=== PATIENT | female | born 1995 | race African-American/Black ===

== ENCOUNTER 2023-03-16 12:53 | Outpatient (CLI) | payer OTHER, SELFPAY ==
[2023-03-16 14:18] LABS: Basophils Absolute Auto 0.1 K/mm3 (0.0-0.1); Basophils Percent Auto 0.9 % (0.2-1.2); Eosinophils Absolute Auto 0.2 K/mm3 (0-0.3); Eosinophils Percent Auto 2.6 % (0-4.4); Hematocrit 35.7 % (37.0-47.0); Hemoglobin 11.4 g/dL (12.0-15.0); Immature Granulocyte Absolute 0.01 K/mm3 (0.00-0.031); Immature Granulocyte Percent A 0.2 % (0-0.5); Lymphocytes Absolute Auto 4.19 K/mm3 (0.9-3.2); Lymphocytes Percent Auto 63.3 % (18.3-44.2); Mean Corpuscular HGB Conc 31.9 g/dl (32-36); Mean Corpuscular Hemoglobin 28.8 pg (26-34); Mean Corpuscular Volume 90.2 fl (80-100); Mean Platelet Volume 10.2 fl (7.4-10.4); Monocytes Absolute Auto 0.3 K/mm3 (0.1-0.6); Monocytes Percent Auto 4.1 % (2.6-8.5); Neutrophils Absolute Auto 1.9 K/mm3 (1.3-6.7); Neutrophils Percent Auto 28.9 % (45.5-73.1); Platelet Count Result 433 k/mm3 (150-375); Red Blood Count 3.96 M/mm3 (4.2-5.4); Red Cell Distribution Width 15.5 % (11.5-14.5); White Blood Count 6.6 K/mm3 (4.5-10.0)
[2023-03-16 14:28] LABS: Alanine Aminotransferase 20 U/L (6-35); Albumin Level 3.6 g/dL (3.5-5.1); Alkaline Phosphatase 61 U/L (38-126); Anion Gap 5 mmol/L (8-16); Aspartate Amino Transferase 21 U/L (14-36); Bilirubin,Total 0.4 mg/dL (0.2-1.3); Blood Urea Nitrogen 12 mg/dL (7-17); Calcium 8.9 mg/dL (8.4-10.2); Carbon Dioxide 25 mmol/L (22-30); Chloride 105 mmol/L (98-107); Estimated Glomerular Filt Rate > 60; Glucose 81 mg/dL (65-110); Potassium 3.5 mmol/L (3.4-5.0); Sodium 135 mmol/L (137-145)
== END 2023-03-16 12:54 | disposition home or self-care (01) ==
PROVIDERS: PCP Family Medicine Adolescent Medicine; Visit Provider Nurse Practitioner Family
DX: G82.20 Paraplegia, unspecified (principal); L89.154 Pressure ulcer of sacral region, stage 4; N39.0 Urinary tract infection, site not specified; Z13.220 Encounter for screening for lipoid disorders
CPT/HCPCS: 36415; 80053; 85025; 99212; G0463

== ENCOUNTER 2023-04-13 12:28 | Outpatient (NON) | payer OTHER, SELFPAY ==
[2023-04-13 13:24] LABS: Appearance Urine Turbid (Clear); Bacteria Urine None Seen /hpf; Bilirubin Urine Negative (Negative); Blood Urine 2+ (Negative); Color Urine Yellow (Yellow); Glucose Urine UA Negative (Negative); Ketones Urine Negative (Negative); Leukocyte Esterase Ur 2+ LEU/UL (Negative); Nitrate Urine Negative (Negative); Non Pathogenic Casts 0-2; Protein Urine 2+ mg/dL (Negative); Specific Grav Ur 1.025 (1.001-1.035); Squamous Epithelial Cell Urine None seen /hpf (Few); WBC Urine >100 /hpf; pH Urine 6.5 (5.0-9.0)
[2023-04-13 20:12] LABS: Add Urine Microscopic? YES
== END 2023-04-13 12:29 | disposition home or self-care (01) ==
LOC: HOME HLTH 12:29
PROVIDERS: PCP Family Medicine Adolescent Medicine; Visit Provider Nurse Practitioner Family
DX: N39.0 Urinary tract infection, site not specified (principal)
CPT/HCPCS: 81001; 87086; 87088

== ENCOUNTER 2023-06-06 12:30 | Outpatient (RCR) | payer OTHER, SELFPAY ==
[2023-03-09 13:18] VITALS: BMI 18.9
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
--- NOTE | 2023-06-08 14:29 | PCWOUND ---
WOCN NOTE Patient has missed last three scheduled appointments. Appointment on 06/01/23 was missed due to transportation issue, then was rescheduled for 06/02/23 and again did not have a ride. Appointment was again rescheduled for 06/06/23 and patient was a no show. Spoke with Gardenia SESAY Manager of [facility] to see if they had any updates on patient's care, states that patient is going through a financial hardship and significant other who is also her primary primary care physician had to go back to work. Unfortunately patient is a total care patient and can't be left alone and they have no one else to stay with patient, so they've been trying through the state to get significant other set up to be a paid caregiver, but they are still waiting for approval. Spoke with Georgina SESAY, who went and saw the patient today. States the wound and periwound tissue have improved and that she reapplied the wound vac today. Due to patient's transportation issues, no follow up appointment will be made in the wound center right now, home health will be primary care team. Appointments will be set up on as an needed term based on Home Health RN observations.
== END 2023-06-07 23:59 | disposition home or self-care (01) ==
LOC: ANHWOC 12:30
PROVIDERS: PCP Family Medicine Adolescent Medicine; Visit Provider Surgery
DX: L89.154 Pressure ulcer of sacral region, stage 4 (principal); G82.20 Paraplegia, unspecified; Z13.220 Encounter for screening for lipoid disorders
CPT/HCPCS: 97605; 99212; 99213; A9270; G0463

== ENCOUNTER 2023-08-17 14:56 | Outpatient (NON) | payer OTHER, SELFPAY | END 2023-08-17 14:57 | disposition home or self-care (01) | PROVIDERS: PCP Family Medicine Adolescent Medicine; Visit Provider Family Medicine Adolescent Medicine | DX: Z11.9 Encounter for screening for infectious and parasitic diseases, unspecified (principal) | CPT/HCPCS: 87070; 87205 ==

== ENCOUNTER 2023-09-06 21:56 | Inpatient (IN) | payer OTHER, SELFPAY ==
[2023-09-06] VITALS (9 sets, daily range): BP systolic 103–129; BP diastolic 71–85; PULSE 80–95; RESP 11–23; TEMP 34.9–36.1; O2SAT 94–100
--- NOTE | ~2023-09-06 | CT_ITS ---
CT of the Abdomen and Pelvis: Indication: Abdominal pain Technique: 2.5 mm axial scans were obtained through the abdomen and pelvis following intravenous adm inistration of 90 cc of Omnipaque 350. Dose reduction technique was used on this scan by utilizing au tomated exposure control and iterative reconstruction technique. The dose-length product (DLP) was 18 3.10 mGy-cm. Findings: Scans through the lung bases are unremarkable. The liver, pancreas, gallbladder, adrenals and kidneys are within normal limits. Probable prior splen ectomy with splenosis. No evidence of aortic aneurysm. No lymphadenopathy. No bowel obstruction or bowel wall thickening. No definite evidence for acute appendicitis. Evaluatio n of bowel is suboptimal due to paucity of intra-abdominal fat. Images through the pelvis were performed. Mac catheter and air bubbles present in the urinary bladd er, possible mild urinary bladder wall thickening. No adnexal mass evident. No ascites. Impression: Questionable cystitis. Correlate clinically. No acute findings evident. Reviewed, dictated and finalized at [facility]. Impression: Questionable cystitis. Correlate clinically. No acute findings evident.
[2023-09-06 22:58] LABS: Basophils Absolute Auto 0.1 K/mm3 (0.0-0.1); Basophils Percent Auto 0.7 % (0.2-1.2); Eosinophils Absolute Auto 0.1 K/mm3 (0-0.3); Hematocrit 37.4 % (37.0-47.0); Immature Granulocyte Absolute 0.02 K/mm3 (0.00-0.031); Immature Granulocyte Percent A 0.2 % (0-0.5); Lymphocytes Absolute Auto 3.99 K/mm3 (0.9-3.2); Lymphocytes Percent Auto 31.6 % (18.3-44.2); Mean Corpuscular HGB Conc 32.1 g/dl (32-36); Mean Corpuscular Hemoglobin 28.6 pg (26-34); Mean Platelet Volume 9.8 fl (7.4-10.4); Monocytes Absolute Auto 0.8 K/mm3 (0.1-0.6); Monocytes Percent Auto 6.3 % (2.6-8.5); Neutrophils Absolute Auto 7.6 K/mm3 (1.3-6.7); Neutrophils Percent Auto 60.2 % (45.5-73.1); Platelet Count Result 466 k/mm3 (150-375); Red Cell Distribution Width 16.1 % (11.5-14.5); White Blood Count 12.6 K/mm3 (4.5-10.0)
[2023-09-06 23:10] LABS: Alanine Aminotransferase 20 U/L (6-35); Albumin Level 4.5 g/dL (3.5-5.1); Alkaline Phosphatase 90 U/L (38-126); Anion Gap 17 mmol/L (4-12); Aspartate Amino Transferase 30 U/L (14-36); Bilirubin,Total 1.2 mg/dL (0.2-1.3); Blood Urea Nitrogen 10 mg/dL (7-17); Calcium 9.6 mg/dL (8.4-10.2); Carbon Dioxide 10 mmol/L (22-30); Chloride 107 mmol/L (98-107); Estimated Glomerular Filt Rate > 60; Glucose 56 mg/dL (65-110); Lipase 42 U/L (23-300); Potassium 4.2 mmol/L (3.4-5.0); Sodium 134 mmol/L (137-145)
[2023-09-06] MEDS: DEXTROSE 50% 25 GM/50 ML SYRINGE IV PUSH (23:17)
[2023-09-06 23:33] LABS: Appearance Urine Cloudy (Clear); Bacteria Urine 1+ /hpf; Bilirubin Urine Negative (Negative); Blood Urine 2+ (Negative); Color Urine Yellow (Yellow); Glucose Urine UA Negative (Negative); Ketones Urine 4+ mg/dL (Negative); Leukocyte Esterase Ur 2+ LEU/UL (Negative); Need Manual Microscopic Reviewed; Nitrate Urine Negative (Negative); Protein Urine Trace mg/dL (Negative); Specific Grav Ur 1.022 (1.001-1.035); Squamous Epithelial Cell Urine Many /hpf (Few); WBC Urine 21-50 /hpf (0-3); pH Urine 5.5 (5.0-9.0)
[2023-09-06] MEDS: SODIUM CHLORIDE 0.9% IV 1,000 ML 999 ML IV CONT (23:35)
--- NOTE | 2023-09-06 23:39 | PC.NURSE ---
pt verbalized having a previous wound infection that grew strep. She states i already finished the antibiotic for that though. I knew something was wrong with me. Yon schulte placed on pt at this time.
[2023-09-06 23:40] LABS: Add Urine Microscopic? YES
[2023-09-07] VITALS (65 sets, daily range): BP systolic 102–164; BP diastolic 62–114; PULSE 60–105; RESP 11–30; TEMP 34.9–37.7; O2SAT 98–100; BMI 19.3
[2023-09-07] MEDS: ceFAZolin 1 GM/NS 50 ML 1 GM/50 ML BAG IVPB (00:01)
[2023-09-07 00:19] LABS: Glucose Point of Care 154 mg/dl (65-105)
[2023-09-07] MEDS: SODIUM CHLORIDE 0.9% IV 1,000 ML 150 ML IV CONT (00:22)
[2023-09-07] MEDS: SODIUM CHLORIDE 0.9% IV 1,000 ML 999 ML IV CONT (00:22)
[2023-09-07 00:54] LABS: Erythrocyte Sedimentation Rate 18 mm/hr (0-20)
[2023-09-07] MEDS: VANCOMYCIN 1,000 MG/NS 250 ML 1,000 MG/250 ML BAG 250 MG IVPB (00:55)
[2023-09-07 01:11] LABS: CRP 2.3 mg/dL (<1.0)
--- NOTE | 2023-09-07 03:04 | ED.ABDPAIN ---
HPI - Abdominal Pain General Chief Complaint: Abdominal Pain Stated Complaint: abd pain Time Seen by Provider: 09/06/23 23:50 History of Present Illness HPI narrative: Patient is a 28-year-old female who presents to the emergency department this evening complaining of left lower quadrant abdominal pain. Patient also admits that she has been having some nausea and diarrhea for the past 3-4 days after eating at a restaurant in [place]. Patient is wheelchair-bound secondary to history of spinal cord injury and lives at home with her fiance with home healthcare. Patient has a wound VAC in place for a sacral wound that she has been dealing with for the past 3 years. Patient recently had positive wound culture for strep and was placed on an antibiotic for this which she 9 days ago. Patient denies any fevers, any urinary symptoms and is currently denying any additional symptoms at this time. Related Data Allergies Allergy/AdvReac Type Severity Reaction Status Date / Time No Known Allergies Allergy Verified 07/07/23 11:11 Review of Systems Review of Systems: All systems are reviewed and are negative unless stated otherwise in the HPI. [facility] Social History Social History Smoking status: Former smoker Tobacco type: cigarettes and e-cigarettes/vaping Alcohol intake: never Substance use: current Substance use type: marijuana Additional living arrangements comments: lives with fianc?e Exam Narrative: General: Alert, awake, afebrile, in no acute distress. HEENT: PERRL, no rhinorrhea, no post nasal drip, oropharynx clear. Neck: Trachea midline, no JVD, no lymphadenopathy. Cardiovascular: Regular rate and rhythm, no murmurs, rubs or gallops, no peripheral edema. Respiratory: Clear to auscultation bilaterally, no tachypnea, no wheezing, no rhonchi, no rubs, no respiratory distress. Abdomen: Soft, tenderness palpation in the left lower quadrant, nondistended, no rebound, no guarding, no peritoneal signs, wound VAC in place over sacral region. Musculoskeletal: Flaccid bilateral lower extremity paralysis secondary spinal cord injury. Skin: No rashes or petechia, no signs of infection. Psychiatric: Alert and oriented, normal behavior and judgment for situation. Neurological: Alert and oriented to person, place, and time. Follows all commands. No focal deficits, speech is clear and fluent. Course Vital Signs Vital signs: Vital Signs Temperature 96 F L 09/06/23 22:06 Pulse Rate 86 09/06/23 22:06 Respiratory Rate 12 09/06/23 22:06 Blood Pressure 129/85 09/06/23 22:06 Pulse Oximetry 100 09/06/23 22:06 Oxygen Delivery Room Air 09/06/23 22:06 Temperature 95.3 F L 09/07/23 00:21 Pulse Rate 89 09/07/23 00:21 Respiratory Rate 11 L 09/07/23 00:21 Blood Pressure 124/76 09/07/23 00:21 Pulse Oximetry 100 09/07/23 00:00 Oxygen Delivery Room Air 09/06/23 22:06 MDM - Abdominal Pain MDM Narrative Medical decision making narrative: The patient was evaluated by myself in the emergency department. History is obtained from patient who is an independent historian and physical exam was performed. External medical records were reviewed at this time. IV was established and pertinent tests were ordered. Patient temperature was noted to be 93? F and this time patient was placed in a bear Hugger with improvement of her temperature 95.3?. Patient was administered 1 L IV fluid bolus with normal saline. Laboratory results obtained revealing a leukocytosis of 12.6, glucose 56, otherwise unremarkable. At this time, patient was administered an amp of dextrose with improvement of her glucose to 154. Inflammatory markers obtained revealed C reactive protein of 2.3, normal ESR. Urinalysis revealed urinary tract infection. At this time, patient was started on vancomycin and cefazolin to cover her for sepsis, likely source is are sacral wound and u
--- NOTE | 2023-09-07 03:34 | PC.NURSE ---
Pt has active wound vac to sacrum and left hip with home health wound vac in place at time of arrival to ed. Unable to assess physical wound d/t wound vac being in place.
--- NOTE | 2023-09-07 03:35 | PC.NURSE ---
Pt depend changed, stool (small smear) cleaned up. Pt noted that her wound vac dressing was due to be changed later today so she was going to text her home health girl to cancel that appointment. This RN attempted to cleanse dressing the best I could from small stool smear.
--- NOTE | 2023-09-07 05:11 | PC.NURSE ---
Yon schulte removed at this time.
--- NOTE | 2023-09-07 07:13 | PC.NURSE ---
SETH Cruz RN
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
[2023-09-07 10:03] LABS: Glucose Point of Care 63 mg/dl (65-105)
[2023-09-07 10:19] LABS: Glucose Point of Care 66 mg/dl (65-105)
--- NOTE | 2023-09-07 10:35 | ADMGEN ---
This patient, Lalit Christopher, was admitted to IMU Room 210-01. Patient/family oriented to hospital policies and general routines including ID bracelet, bed and alarms, visiting hours, pain management, procedures, bathroom and other care routines, personal items, smoking policy, room service/diet, and visiting hours. Information on how to activate the Rapid Response Team has been discussed. Patient/Family are encouraged to report perceived risks to care and to ask questions if they do not understand what they are told or what they should do.
[2023-09-07 12:11] LABS: Glucose Point of Care 87 mg/dl (65-105)
[2023-09-07] MEDS: VANCOMYCIN 750 MG/NS 250 ML 750 MG/250 ML BAG 250 MG IVPB (12:39)
[2023-09-07] MEDS: cefTRIAXone 2 GM/NS 100 ML 2 GM/100 ML BAG IVPB (14:54)
[2023-09-07] MEDS: HYDROcodone/acetaminophen (*CRX) 5-325 MG TABLET 1 TAB PO ×2 (14:54→22:52)
[2023-09-07] MEDS: TOLTERODINE TARTRATE 2 MG TABLET PO ×2 (14:56→20:41)
[2023-09-07] MEDS: metroNIDAZOLE 500 MG TABLET XX (16:26)
[2023-09-07] MEDS: DEXTROSE 5%/0.9% SOD CHL 1,000 ML 100 ML IV CONT (16:26)
--- NOTE | 2023-09-07 16:49 | PC.NURSE ---
Spoke with Dr. Alarcon to receive clarification on Flagyl order. Wound RN recommends 250mg Flagyl crushed and sprinkled into wound bed daily with dressing changes. Flagyl 500mg PO q8hr was ordered by . New order to change Flagyl back to original order placed by wound RN.
[2023-09-07 16:53] LABS: Glucose Point of Care 95 mg/dl (65-105)
[2023-09-07 20:19] LABS: Glucose Point of Care 105 mg/dl (65-105)
[2023-09-07 23:32] LABS: Glucose Point of Care 115 mg/dl (65-105)
[2023-09-08] MEDS: VANCOMYCIN 750 MG/NS 250 ML 750 MG/250 ML BAG 250 MG IVPB (02:07)
[2023-09-08] MEDS: DEXTROSE 5%/0.9% SOD CHL 1,000 ML 100 ML IV CONT (02:08)
[2023-09-08 04:48] LABS: Estimated Glomerular Filt Rate > 60
[2023-09-08 07:34] VITALS: BP 123/85; PULSE 81; RESP 14; TEMP 36.6; O2SAT 100
[2023-09-08 08:49] VITALS: O2SAT 98
[2023-09-08 09:29] LABS: Glucose Point of Care 130 mg/dl (65-105)
[2023-09-08] MEDS: HYDROcodone/acetaminophen (*CRX) 5-325 MG TABLET 1 TAB PO ×2 (09:51→21:36)
[2023-09-08] MEDS: TOLTERODINE TARTRATE 2 MG TABLET PO ×2 (09:54→21:43)
--- NOTE | 2023-09-08 10:47 | PM.IMPN ---
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 Meeting criteria of sepsis Likely secondary to UTI, acute infective gastroenteritis, and also possible decubitus ulcer Patient received vancomycin and cefazolin in the ED. will start ceftriaxone 2 g IV daily, Flagyl 500 mg q.8 hours p.o. follow urine culture blood culture, stool culture 09/07: patient is afebrile, blood pressure stable, leukocytosis improving, 10.2 today urine culture grows E coli pending susceptibility UTI UA shows pyuria hematuria Start ceftriaxone IV Follow-up urine culture Repeat the UA, if hematuria persists, consult urologist Stage IV decubital ulcer Patient stage IV decubital ulcer, Hemovac, foul-smelling consult wound care Wound culture per wound care Patient is on systemic antibiotics now Hypoglycemia Likely secondary to poor intake Hypoglycemia protocol is initiated Start D5 normal saline patient may stay more than 2 midnights in hospital Subjective Date/time seen: 09/08/23 10:48 Interval history: patient is afebrile, blood pressure stable, no O2 desaturation room air, blood culture has no growth so far, urine culture grows E coli, pending susceptibility. patient denies abdomen pain, nausea vomiting Exam Narrative: GENERAL: Pleasant, in no acute distress. Well-nourished. - EYES: EOMI. Anicteric. - HENT: Moist mucous membranes. - LUNGS: Clear to auscultation bilaterally, no wheezing, rhonchi, or rales. - CARDIOVASCULAR: Regular rate and rhythm. No murmur. No JVD. - ABDOMEN: Soft, non-tender and non-distended. No palpable masses. - EXTREMITIES: No edema. Peripheral pulses 2+. Non-tender. - NEUROLOGIC: No focal neurological deficits. paralyses lower extremities, contracture of both hands - PSYCHIATRIC: Awake, Alert and oriented x 3. Appropriate mood and affect. - SKIN: stage IV decubital ulcer - LYMPH: No cervical lymphadenopathy. Objective Data Vital Signs Vital Signs: Vital Signs - 24 hr 09/07/23 11:44 09/07/23 16:00 09/07/23 19:59 Temperature 97.8 F 97.6 F 98.5 F Pulse Rate 76 63 83 Respiratory Rate 16 14 16 Blood Pressure 134/87 130/81 126/73 Pulse Oximetry 100 100 98 Oxygen Delivery Fraction of Inspired Oxygen 09/07/23 20:00 09/07/23 23:28 09/08/23 07:34 Temperature 98 F Pulse Rate 83 78 81 Respiratory Rate 16 14 Blood Pressure 123/85 Pulse Oximetry 98 100 Oxygen Delivery Room Air Fraction of Inspired Oxygen 09/08/23 08:49 Temperature Pulse Rate Respiratory Rate Blood Pressure Pulse Oximetry 98 Oxygen Delivery Room Air Fraction of Inspired Oxygen 21 Intake/Output Intake/Output: Intake & Output 09/05/23 09/06/23 09/07/23 09/08/23 23:59 23:59 23:59 23:59 Intake Total 4440 1970 Output Total 1200 1200 Balance 3240 770 Meds/Results Medications: Active Medications Generic Name Dose Route Start Last Admin Trade Name Freq PRN Reason Stop Dose Admin Hydrocodone Bitart/Acetaminophen 1 tab 09/07/23 14:16 09/08/23 09:51 Hydrocodone/Acetaminophen (*Crx) 5-325 Mg Tablet PO 1 tab BID PRN Administration pain Dextrose 12.5 gm 09/07/23 10:21 Dextrose 50% 25 Gm/50 Ml Syringe IV PUSH PRN PRN Hypoglycemia
[2023-09-08 11:01] LABS: Basophils Absolute Auto 0.1 K/mm3 (0.0-0.1); Basophils Percent Auto 0.5 % (0.2-1.2); Eosinophils Absolute Auto 0.2 K/mm3 (0-0.3); Eosinophils Percent Auto 2.3 % (0-4.4); Hematocrit 32.9 % (37.0-47.0); Hemoglobin 10.4 g/dL (12.0-15.0); Immature Granulocyte Absolute 0.02 K/mm3 (0.00-0.031); Immature Granulocyte Percent A 0.2 % (0-0.5); Lymphocytes Absolute Auto 5.08 K/mm3 (0.9-3.2); Lymphocytes Percent Auto 49.7 % (18.3-44.2); Mean Corpuscular HGB Conc 31.6 g/dl (32-36); Mean Corpuscular Hemoglobin 28.7 pg (26-34); Mean Corpuscular Volume 90.6 fl (80-100); Mean Platelet Volume 10.2 fl (7.4-10.4); Monocytes Absolute Auto 0.9 K/mm3 (0.1-0.6); Monocytes Percent Auto 8.4 % (2.6-8.5); Neutrophils Percent Auto 38.9 % (45.5-73.1); Platelet Count Result 415 k/mm3 (150-375); Red Blood Count 3.63 M/mm3 (4.2-5.4); Red Cell Distribution Width 16.5 % (11.5-14.5); White Blood Count 10.2 K/mm3 (4.5-10.0)
[2023-09-08] MEDS: metroNIDAZOLE 250 MG TABLET XX (11:15)
[2023-09-08 11:34] LABS: Anion Gap 6 mmol/L (4-12); Blood Urea Nitrogen 5 mg/dL (7-17); Calcium 8.7 mg/dL (8.4-10.2); Carbon Dioxide 19 mmol/L (22-30); Chloride 113 mmol/L (98-107); Estimated Glomerular Filt Rate > 60; Glucose 107 mg/dL (65-110); Potassium 3.5 mmol/L (3.4-5.0); Sodium 138 mmol/L (137-145)
[2023-09-08 12:35] LABS: Vancomycin Trough 6.2 ug/mL (10.0-20.0)
[2023-09-08 13:00] LABS: Glucose Point of Care 110 mg/dl (65-105)
[2023-09-08] MEDS: cefTRIAXone 2 GM/NS 100 ML 2 GM/100 ML BAG IVPB (15:38)
[2023-09-08 16:00] VITALS: BP 111/80; PULSE 79; RESP 16; TEMP 36.6; O2SAT 100
[2023-09-08] MEDS: VANCOMYCIN 1,000 MG/NS 250 ML 1,000 MG/250 ML BAG 250 MG IVPB ×2 (16:14→21:37)
[2023-09-08 17:17] LABS: Glucose Point of Care 116 mg/dl (65-105)
[2023-09-08 20:00] VITALS: PULSE 79; RESP 16; O2SAT 100
[2023-09-08 20:37] LABS: Glucose Point of Care 105 mg/dl (65-105)
[2023-09-08 20:45] VITALS: BP 130/87; PULSE 83; RESP 16; TEMP 36.4; O2SAT 97
--- NOTE | 2023-09-08 21:05 | PC.NURSE ---
This patient, Lalit Christopher, was transferred to [[id number] ] on 09/08/23 at 2105. Personal belongings sent with patient. Report given to [Vidhya bernard ]. Appropriate documentation sent with patient.
--- NOTE | 2023-09-08 21:22 | PC.NURSE ---
Pt transferred from IMU to 2nd Medical Room 785 @3057. Report received from LÁZARO Landaverde.
[2023-09-09] MEDS: VANCOMYCIN 1,000 MG/NS 250 ML 1,000 MG/250 ML BAG 250 MG IVPB (05:00)
[2023-09-09 05:36] LABS: Basophils Absolute Auto 0.1 K/mm3 (0.0-0.1); Basophils Percent Auto 0.6 % (0.2-1.2); Eosinophils Absolute Auto 0.3 K/mm3 (0-0.3); Hematocrit 33.3 % (37.0-47.0); Hemoglobin 10.7 g/dL (12.0-15.0); Immature Granulocyte Absolute 0.01 K/mm3 (0.00-0.031); Immature Granulocyte Percent A 0.1 % (0-0.5); Lymphocytes Absolute Auto 4.41 K/mm3 (0.9-3.2); Lymphocytes Percent Auto 52.8 % (18.3-44.2); Mean Corpuscular HGB Conc 32.1 g/dl (32-36); Mean Corpuscular Hemoglobin 28.5 pg (26-34); Mean Corpuscular Volume 88.6 fl (80-100); Mean Platelet Volume 9.7 fl (7.4-10.4); Monocytes Absolute Auto 0.8 K/mm3 (0.1-0.6); Neutrophils Absolute Auto 2.8 K/mm3 (1.3-6.7); Neutrophils Percent Auto 33.5 % (45.5-73.1); Platelet Count Result 437 k/mm3 (150-375); Red Blood Count 3.76 M/mm3 (4.2-5.4); Red Cell Distribution Width 16.3 % (11.5-14.5); White Blood Count 8.4 K/mm3 (4.5-10.0)
[2023-09-09 05:42] LABS: Anion Gap 4 mmol/L (4-12); Blood Urea Nitrogen 6 mg/dL (7-17); Calcium 9.2 mg/dL (8.4-10.2); Carbon Dioxide 24 mmol/L (22-30); Chloride 109 mmol/L (98-107); Estimated Glomerular Filt Rate > 60; Glucose 104 mg/dL (65-110); Potassium 3.3 mmol/L (3.4-5.0); Sodium 137 mmol/L (137-145)
[2023-09-09 06:00] VITALS: BP 105/60; PULSE 65; RESP 18; TEMP 36.3; O2SAT 92
[2023-09-09 08:01] VITALS: O2SAT 99
--- NOTE | 2023-09-09 08:11 | PM.IMPN ---
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 Meeting criteria of sepsis Likely secondary to UTI, acute infective gastroenteritis, and also possible decubitus ulcer Patient received vancomycin and cefazolin in the ED. will start ceftriaxone 2 g IV daily, Flagyl 500 mg q.8 hours p.o. follow urine culture blood culture, stool culture 09/08: patient is afebrile, blood pressure stable, leukocytosis improving, 10.2 today urine culture grows E coli susceptible to ceftriaxone UTI UA shows pyuria hematuria Start ceftriaxone IV Follow-up urine culture Repeat the UA, if hematuria persists, consult urologist continue ceftriaxone IV today change p.o. tomorrow Stage IV decubital ulcer Patient stage IV decubital ulcer, Hemovac, foul-smelling consult wound care Wound culture per wound care Patient is on systemic antibiotics now Hypoglycemia Likely secondary to poor intake Hypoglycemia protocol is initiated Start D5 normal saline patient may stay more than 2 midnights in hospital Subjective Date/time seen: 09/09/23 08:11 Interval history: patient is afebrile, blood pressure stable, no O2 desaturation room air, blood culture has no growth so far, urine culture grows E coli, susceptible to ceftriaxone. patient denies abdomen pain, nausea vomiting Exam Narrative: GENERAL: Pleasant, in no acute distress. Well-nourished. - EYES: EOMI. Anicteric. - HENT: Moist mucous membranes. - LUNGS: Clear to auscultation bilaterally, no wheezing, rhonchi, or rales. - CARDIOVASCULAR: Regular rate and rhythm. No murmur. No JVD. - ABDOMEN: Soft, non-tender and non-distended. No palpable masses. - EXTREMITIES: No edema. Peripheral pulses 2+. Non-tender. - NEUROLOGIC: No focal neurological deficits. paralyses lower extremities, contracture of both hands - PSYCHIATRIC: Awake, Alert and oriented x 3. Appropriate mood and affect. - SKIN: stage IV decubital ulcer - LYMPH: No cervical lymphadenopathy. Objective Data Vital Signs Vital Signs: Vital Signs - 24 hr 09/08/23 08:49 09/08/23 16:00 09/08/23 20:00 Temperature 97.8 F Pulse Rate 79 79 Respiratory Rate 16 16 Blood Pressure 111/80 Pulse Oximetry 98 100 100 Oxygen Delivery Room Air Room Air Fraction of Inspired Oxygen 21 21 09/08/23 20:45 09/08/23 21:52 09/09/23 06:00 Temperature 97.6 F 97.4 F L Pulse Rate 83 65 Respiratory Rate 16 18 Blood Pressure 130/87 105/60 Pulse Oximetry 97 92 Oxygen Delivery Room Air Fraction of Inspired Oxygen 09/09/23 08:01 Temperature Pulse Rate Respiratory Rate Blood Pressure Pulse Oximetry 99 Oxygen Delivery Room Air Fraction of Inspired Oxygen Intake/Output Intake/Output: Intake & Output 09/06/23 09/07/23 09/08/23 09/09/23 23:59 23:59 23:59 23:59 Intake Total 4440 3715 650 Output Total 1200 2500 1700 Balance 3240 1215 -1050 Meds/Results Medications: Active Medications Generic Name Dose Route Start Last Admin Trade Name Freq PRN Reason Stop Dose Admin Hydrocodone Bitart/Acetaminophen 1 tab 09/07/23 14:16 09/08/23 21:36 Hydrocodone/Acetaminophen (*Crx) 5-325 Mg Tablet PO 1 tab BID PRN Administration pain Dextrose 12.5 gm 09/07/23 10:21
[2023-09-09 08:29] LABS: Glucose Point of Care 100 mg/dl (65-105)
[2023-09-09] MEDS: TOLTERODINE TARTRATE 2 MG TABLET PO ×2 (09:26→20:58)
[2023-09-09] MEDS: POTASSIUM CHLORIDE 20 MEQ PACKET (FOR LIQUID) PO (09:26)
[2023-09-09] MEDS: POTASSIUM CHLORIDE 20 MEQ PACKET (FOR LIQUID) 40 MEQ PO (09:26)
[2023-09-09] MEDS: metroNIDAZOLE 250 MG TABLET XX (09:26)
[2023-09-09] MEDS: HYDROcodone/acetaminophen (*CRX) 5-325 MG TABLET 1 TAB PO ×2 (09:41→19:56)
[2023-09-09 12:11] LABS: Glucose Point of Care 93 mg/dl (65-105)
--- NOTE | 2023-09-09 12:39 | PC.NURSE ---
On 09/09/23, the student, [Teressa Menjivar], provided care and completed [facility] documentation on this patient. I have reviewed the student's documentation and agree with the findings.
[2023-09-09] MEDS: cefTRIAXone 2 GM/NS 100 ML 2 GM/100 ML BAG IVPB (13:27)
--- NOTE | 2023-09-09 13:32 | PCNFU ---
Nutrition Follow-Up Complete: Increased protein energy needs related to wound healing as evidenced by stage 3 pressure injury to sacrum Adequate intake at least 75% meals and supplements to support wound healing- progressing to goal. Continue with same goal Goal: Pt current nutrition is regular, intakes 0-100%. Magic cup nutritional ice cream BID for additional 290 kcal and 9 g protein each, Pola BID for additional 90 kcal and 2.5 g protein each for wound support. Nutrition recommendation: No new nutrition recommendations. Continue with current nutrition care plan and orders Last recorded weight is 43.6 kg. Bowel Motility: LBM 09/07/23 Labs Reviewed: Hgb 10.7, Hct 33.3, K+ 3.3, BUN 6, Cre 0.3 Meds Noted: Rocephin, flagyl, levaquin Skin: Stage 3 sacrum Additional Notes: Appetite is fair. Outside food sometimes brought in, charted as 0 intake. Monitoring intakes, weights, labs, wound healing, supplement tolerance Follow up in 3 days
[2023-09-09 14:00] VITALS: BP 100/63; PULSE 87; RESP 14; TEMP 36.8; O2SAT 99
[2023-09-09 17:20] LABS: Glucose Point of Care 99 mg/dl (65-105)
[2023-09-09 20:45] VITALS: BP 130/83; PULSE 69; RESP 16; TEMP 36.4; O2SAT 100
[2023-09-09 22:06] LABS: Glucose Point of Care 96 mg/dl (65-105)
[2023-09-10 06:00] VITALS: BP 120/90; PULSE 71; RESP 16; TEMP 36.4; O2SAT 100
--- NOTE | 2023-09-10 07:39 | PM.IMPN ---
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 Meeting criteria of sepsis Likely secondary to UTI, acute infective gastroenteritis, and also possible decubitus ulcer Patient received vancomycin and cefazolin in the ED. will start ceftriaxone 2 g IV daily, Flagyl 500 mg q.8 hours p.o. follow urine culture blood culture, stool culture 09/08: patient is afebrile, blood pressure stable, leukocytosis improving, 10.2 today urine culture grows E coli susceptible to ceftriaxone changed to Levaquin p.o. on discharge UTI UA shows pyuria hematuria Start ceftriaxone IV Follow-up urine culture Repeat the UA, if hematuria persists, consult urologist patient received ceftriaxone IV Change Levaquin p.o. Stage IV decubital ulcer Patient stage IV decubital ulcer, Hemovac, foul-smelling consult wound care received systemic antibiotics and focal antibiotics Hypoglycemia Likely secondary to poor intake Hypoglycemia protocol is initiated Start D5 normal saline resolved patient may stay more than 2 midnights in hospital Subjective Date/time seen: 09/10/23 07:39 Interval history: patient is afebrile, blood pressure stable, no O2 desaturation room air, blood culture has no growth so far, patient denies abdomen pain, nausea vomiting. Exam Narrative: GENERAL: Pleasant, in no acute distress. Well-nourished. - EYES: EOMI. Anicteric. - HENT: Moist mucous membranes. - LUNGS: Clear to auscultation bilaterally, no wheezing, rhonchi, or rales. - CARDIOVASCULAR: Regular rate and rhythm. No murmur. No JVD. - ABDOMEN: Soft, non-tender and non-distended. No palpable masses. - EXTREMITIES: No edema. Peripheral pulses 2+. Non-tender. - NEUROLOGIC: No focal neurological deficits. paralyses lower extremities, contracture of both hands - PSYCHIATRIC: Awake, Alert and oriented x 3. Appropriate mood and affect. - SKIN: stage IV decubital ulcer - LYMPH: No cervical lymphadenopathy. Objective Data Vital Signs Vital Signs: Vital Signs - 24 hr 09/09/23 08:01 09/09/23 08:30 09/09/23 14:00 Temperature 98.2 F Pulse Rate 87 Respiratory Rate 14 Blood Pressure 100/63 Pulse Oximetry 99 99 Oxygen Delivery Room Air Room Air 09/09/23 20:45 09/09/23 20:54 09/10/23 06:00 Temperature 97.6 F 97.6 F Pulse Rate 69 71 Respiratory Rate 16 16 Blood Pressure 130/83 120/90 Pulse Oximetry 100 100 Oxygen Delivery Room Air Intake/Output Intake/Output: Intake & Output 09/07/23 09/08/23 09/09/23 09/10/23 23:59 23:59 23:59 23:59 Intake Total 4440 3715 990 300 Output Total 1200 2500 3300 725 Balance 3240 3607 -0441 -596 Meds/Results Medications: Active Medications Generic Name Dose Route Start Last Admin Trade Name Freq PRN Reason Stop Dose Admin Hydrocodone Bitart/Acetaminophen 1 tab 09/07/23 14:16 09/09/23 19:56 Hydrocodone/Acetaminophen (*Crx) 5-325 Mg Tablet PO 1 tab BID PRN Administration pain Dextrose 12.5 gm 09/07/23 10:21 Dextrose 50% 25 Gm/50 Ml Syringe IV PUSH PRN PRN Hypoglycemia Protocol Glucagon 1 mg 09/07/23 10:21 Glucagon For Inj 1 Mg Vial IM PRN PRN Hypoglycemia Protocol Glucose 15 gm 09/07/23 10:21
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
[2023-09-10 08:13] LABS: Glucose Point of Care 108 mg/dl (65-105)
[2023-09-10 08:18] LABS: Hematocrit 34.3 % (37.0-47.0); Hemoglobin 11.1 g/dL (12.0-15.0); Mean Corpuscular HGB Conc 32.4 g/dl (32-36); Mean Corpuscular Hemoglobin 28.8 pg (26-34); Mean Corpuscular Volume 88.9 fl (80-100); Mean Platelet Volume 9.7 fl (7.4-10.4); Platelet Count Result 462 k/mm3 (150-375); Red Blood Count 3.86 M/mm3 (4.2-5.4); Red Cell Distribution Width 16.4 % (11.5-14.5); White Blood Count 6.3 K/mm3 (4.5-10.0)
[2023-09-10 08:31] LABS: Anion Gap 4 mmol/L (4-12); Blood Urea Nitrogen 9 mg/dL (7-17); Carbon Dioxide 24 mmol/L (22-30); Chloride 108 mmol/L (98-107); Estimated Glomerular Filt Rate > 60; Glucose 100 mg/dL (65-110); Potassium 3.6 mmol/L (3.4-5.0); Sodium 136 mmol/L (137-145)
[2023-09-10] MEDS: POTASSIUM CHLORIDE 20 MEQ PACKET (FOR LIQUID) PO (10:09)
[2023-09-10] MEDS: levoFLOXacin 750 MG TABLET PO (10:10)
[2023-09-10] MEDS: HYDROcodone/acetaminophen (*CRX) 5-325 MG TABLET 1 TAB PO (10:10)
[2023-09-10] MEDS: TOLTERODINE TARTRATE 2 MG TABLET PO (10:10)
[2023-09-10] MEDS: metroNIDAZOLE 250 MG TABLET XX (13:17)
== END 2023-09-10 14:05 | disposition home health service (06) | DRG 871 ==
LOC: ANHED 09-07 03:21 → ANHIMU 09-07 04:33 → ANH2MED 09-08 21:05
PROVIDERS: Physician Assistant; Admitting Provider Internal Medicine; Emergency Provider Emergency Medicine; PCP Family Medicine Adolescent Medicine; Visit Provider Hospitalist
DX: A41.9 Sepsis, unspecified organism (principal); G82.50 Quadriplegia, unspecified; L89.154 Pressure ulcer of sacral region, stage 4; N39.0 Urinary tract infection, site not specified; A09 Infectious gastroenteritis and colitis, unspecified; B96.20 Unspecified Escherichia coli [E. coli] as the cause of diseases classified elsewhere; R31.9 Hematuria, unspecified; E86.0 Dehydration; E16.2 Hypoglycemia, unspecified; T14.8XXS Other injury of unspecified body region, sequela; Z99.3 Dependence on wheelchair; Z87.891 Personal history of nicotine dependence
CPT/HCPCS: 36415; 74177; 80048; 80053; 80202; 81001; 81025; 82565; 82948; 83605; 83690; 85025; 85027; 85652; 86140; 87040; 87077; 87086; 87088; 87186; 96365; 96366; 96367; 96375; 99285; A9270; J0690; J0696; J3370; J7030; J7042; Q9967

== ENCOUNTER 2023-10-07 11:03 | Outpatient (NON) | payer OTHER, SELFPAY ==
[2023-10-07 11:41] LABS: Appearance Urine Cloudy (Clear); Bacteria Urine 1+ /hpf; Bilirubin Urine Negative (Negative); Blood Urine 1+ (Negative); Color Urine Yellow (Yellow); Glucose Urine UA Negative (Negative); Ketones Urine Trace mg/dL (Negative); Leukocyte Esterase Ur 2+ LEU/UL (Negative); Nitrate Urine Negative (Negative); Non Pathogenic Casts 0-2; Protein Urine Negative (Negative); Specific Grav Ur 1.016 (1.001-1.035); Squamous Epithelial Cell Urine None Seen /hpf (Few); Urobilinogen Urine 0.2 mg/dL (<2.0); WBC Urine >100 /hpf (0-3); pH Urine 6.5 (5.0-9.0)
[2023-10-07 11:50] LABS: Add Urine Microscopic? YES
== END 2023-10-07 11:04 | disposition home or self-care (01) ==
LOC: HOME HLTH 11:05
PROVIDERS: PCP Family Medicine Adolescent Medicine; Visit Provider Nurse Practitioner Family
DX: N39.0 Urinary tract infection, site not specified (principal); G82.20 Paraplegia, unspecified
CPT/HCPCS: 81001; 87077; 87086; 87088; 87186

== ENCOUNTER 2023-12-26 01:19 | Observation (INO) | payer OTHER, SELFPAY ==
[2023-12-26] VITALS (7 sets, daily range): BP systolic 102–150; BP diastolic 66–102; PULSE 52–103; RESP 14–20; TEMP 35.8–36.3; O2SAT 93–100; BMI 18.8
--- NOTE | ~2023-12-26 | CT_ITS ---
EXAMINATION: CT abdomen pelvis w con DATE: 12/26/2023 03:11 INDICATION: Left lower quadrant abdominal pain. TECHNIQUE: Computed tomography (CT) of the abdomen and pelvis was performed with 100 mL Omnipaque 350 intravenous contrast. Automated exposure control and iterative reconstruction technique were employe d. The dose-length product was 205.74 mGy-cm. COMPARISON: CT abdomen and pelvis 09/07/2023 FINDINGS: The visualized portions of the lung bases demonstrate minimal atelectasis. No pleural effus ion. The heart size is normal. No pericardial effusion. The liver, gallbladder, pancreas, and adrenal glands are normal. There is splenosis in left upper quadrant. The kidneys are normal. There is promi nent stool in the distal colon with distention of the sigmoid colon. The appendix is normal. There ar e no pathologically enlarged lymph nodes. There is no free intraperitoneal fluid. There is a sacral d ecubitus ulcer with packing material. There is chronic volume loss of the sacrum, which may be surgic al change or osteomyelitis. IMPRESSION: 1. Prominent stool in the distal colon with distention of the sigmoid colon. 2. Sacral decubitus ulcer with chronic volume loss of the sacrum, which may be surgical change or ost eomyelitis. Reviewed, dictated and finalized at location A. IMPRESSION: 1. Prominent stool in the distal colon with distention of the sigmoid colon. 2. Sacral decubitus ulcer with chronic volume loss of the sacrum, which may be surgical change or osteomyelitis.
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
[2023-12-26] MEDS: MORPHINE SULFATE (*CRX) 4 MG/ML INJ IV PUSH (02:07)
[2023-12-26 02:28] LABS: Basophils Percent Auto 0.5 % (0.2-1.2); Eosinophils Absolute Auto 0.1 K/mm3 (0-0.3); Eosinophils Percent Auto 1.5 % (0-4.4); Hematocrit 36.4 % (37.0-47.0); Hemoglobin 11.6 g/dL (12.0-15.0); Immature Granulocyte Absolute 0.01 K/mm3 (0.00-0.031); Immature Granulocyte Percent A 0.1 % (0-0.5); Lymphocytes Absolute Auto 3.53 K/mm3 (0.9-3.2); Lymphocytes Percent Auto 46.6 % (18.3-44.2); Mean Corpuscular HGB Conc 31.9 g/dl (32-36); Mean Corpuscular Hemoglobin 28.5 pg (26-34); Mean Corpuscular Volume 89.4 fl (80-100); Mean Platelet Volume 9.3 fl (7.4-10.4); Monocytes Absolute Auto 0.4 K/mm3 (0.1-0.6); Monocytes Percent Auto 5.7 % (2.6-8.5); Neutrophils Absolute Auto 3.5 K/mm3 (1.3-6.7); Neutrophils Percent Auto 45.6 % (45.5-73.1); Platelet Count Result 534 k/mm3 (150-375); Red Blood Count 4.07 M/mm3 (4.2-5.4); Red Cell Distribution Width 14.9 % (11.5-14.5); White Blood Count 7.6 K/mm3 (4.5-10.0)
[2023-12-26 02:39] LABS: Alanine Aminotransferase 18 U/L (6-35); Albumin Level 3.8 g/dL (3.5-5.1); Alkaline Phosphatase 77 U/L (38-126); Anion Gap 10 mmol/L (4-12); Aspartate Amino Transferase 25 U/L (14-36); Bilirubin,Total 0.3 mg/dL (0.2-1.3); Blood Urea Nitrogen 9 mg/dL (7-17); Calcium 8.8 mg/dL (8.4-10.2); Carbon Dioxide 23 mmol/L (22-30); Chloride 104 mmol/L (98-107); Estimated Glomerular Filt Rate > 60; Glucose 103 mg/dL (65-110); Lipase 98 U/L (23-300); Potassium 3.8 mmol/L (3.4-5.0); Sodium 137 mmol/L (137-145)
[2023-12-26 02:46] LABS: Add Urine Microscopic? YES; Appearance Urine Clear (Clear); Bacteria Urine None Seen /hpf; Bilirubin Urine Negative (Negative); Blood Urine Trace (Negative); Color Urine Yellow (Yellow); Glucose Urine UA Negative (Negative); Ketones Urine Negative (Negative); Leukocyte Esterase Ur Trace LEU/UL (Negative); Need Manual Microscopic Reviewed; Nitrate Urine Negative (Negative); Non Pathogenic Casts 0-2; Protein Urine Negative (Negative); RBC Urine 0-2 /hpf (0-2); Specific Grav Ur 1.005 (1.001-1.035); Squamous Epithelial Cell Urine None Seen /hpf (Few); Urobilinogen Urine 0.2 mg/dL (<2.0); WBC Urine 0-5 /hpf (0-3)
[2023-12-26 03:05] LABS: Pregnancy On Board Control Positive; Urine Pregnancy Test Negative
--- NOTE | 2023-12-26 07:55 | ADMGEN ---
This patient, Lalit Christopher, was admitted to [facility] Surg Room 307-02. Patient/family oriented to hospital policies and general routines including ID bracelet, bed and alarms, visiting hours, pain management, procedures, bathroom and other care routines, personal items, smoking policy, room service/diet, and visiting hours. Information on how to activate the Rapid Response Team has been discussed. Patient/Family are encouraged to report perceived risks to care and to ask questions if they do not understand what they are told or what they should do.
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
[2023-12-26] MEDS: TOLTERODINE TARTRATE 2 MG TABLET PO ×2 (13:23→20:30)
[2023-12-26] MEDS: polyethylene glycoL 3350 17 GM POWD.PACK PO (13:23)
[2023-12-26] MEDS: LUBIPROSTONE 8 MCG CAPSULE 24 MCG PO ×2 (13:24→16:51)
[2023-12-26] MEDS: MORPHINE SULFATE (*CRX) 2 MG/ML INJ IV PUSH (19:01)
[2023-12-26] MEDS: MIRTAZAPINE 7.5 MG TABLET PO (20:30)
[2023-12-27 06:12] VITALS: BP 131/85; PULSE 90; RESP 14; TEMP 36.5; O2SAT 89
[2023-12-27] MEDS: TOLTERODINE TARTRATE 2 MG TABLET PO (07:52)
[2023-12-27] MEDS: LUBIPROSTONE 8 MCG CAPSULE 24 MCG PO (07:52)
[2023-12-27] MEDS: ENOXAPARIN 40 MG/0.4 ML SYRINGE SUB-Q (07:52)
[2023-12-27 10:29] VITALS: BMI 18.8
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
[2023-12-27] MEDS: MORPHINE SULFATE (*CRX) 2 MG/ML INJ IV PUSH (13:28)
--- NOTE | 2023-12-27 14:20 | WPDGIPROGNO ---
Progress Note: A&P Assessment and Plan (1) Constipation due to opioid therapy: Code(s): K59.03 - Drug induced constipation; T40.2X5A - Adverse effect of other opioids, initial encounter Status: Acute Assessment and Plan: responding to medical treatment ok to go home and continue with bowel regimen at home follow-up office as needed (2) LLQ pain: Code(s): R10.32 - Left lower quadrant pain Status: Acute Assessment and Plan: resolved tolerating regular diet (3) Stercoral colitis: Code(s): K52.89 - Other specified noninfective gastroenteritis and colitis Status: Acute Assessment and Plan: resolved s/p manual disimpaction (4) Paraplegic spinal paralysis: Code(s): G82.20 - Paraplegia, unspecified Status: Acute Subjective Date/time seen: 12/27/23 14:20 Interval history: she is having better BM and less pain, she is looking forward to going home today Review of Systems Review of Systems: All systems reviewed & are unremarkable except as noted in HPI and below Exam Const: General: comfortable and no acute distress HENMT: Face/Nose/Sinus: Normal nares present Eyes: General: appearance normal, both eyes and all related structures Neck: Neck: supple Resp: Auscultation: clear to auscultation bilaterally Cardio: Rate: regular rate Rhythm: regular rhythm GI: Inspection: non-distended GI Palp: Yes Soft to palpation and No Tenderness to palpation present (GI) Skin: General skin exam: normal color Neuro: Speech: normal speech Other: paraplegia Extrem: General: normal to inspection Psych: Mental Status: mental status grossly normal Objective Data Vital Signs Vital Signs: Vital Signs - 24 hr 12/26/23 21:04 12/26/23 20:00 12/27/23 06:12 Temperature 96.8 F L 97.7 F Pulse Rate 90 90 Respiratory Rate 16 14 Blood Pressure 112/68 131/85 Pulse Oximetry 98 89 L Oxygen Delivery Room Air 12/27/23 08:00 Temperature Pulse Rate Respiratory Rate Blood Pressure Pulse Oximetry Oxygen Delivery Room Air Intake/Output Intake/Output: Intake & Output 12/24/23 12/25/23 12/26/23 12/27/23 23:59 23:59 23:59 23:59 Intake Total 0 Output Total 1000 351 Balance -1000 -351 Meds/Results Medications: Active Medications Generic Name Dose Route Start Last Admin Trade Name Ilirq PRN Reason Stop Dose Admin Acetaminophen 650 mg 12/26/23 12:46 Acetaminophen 325 Mg Tablet PO Q6H PRN Mild Pain (1-3) Hydrocodone Bitart/Acetaminophen 1 tab 12/26/23 12:40 Hydrocodone/Acetaminophen (*Crx) 5-325 Mg Tablet PO BID PRN MODERATE PAIN Bisacodyl 10 mg 12/26/23 12:40 Bisacodyl 10 Mg Suppository RECTAL DAILY PRN constipation Enoxaparin Sodium 40 mg 12/27/23 09:00 12/27/23 07:52 Enoxaparin 40 Mg/0.4 Ml Syringe SUB-Q 40 mg DAILY SUZANNE Administration Lubiprostone 24 mcg 12/26/23 09:00 12/27/23 07:52 Lubiprostone 8 Mcg Capsule PO 24 mcg BID SUZANNE Administration Mirtazapine 7.5 mg 12/26/23 21:00 12/26/23 20:30 Mirtazapine 7.5 Mg Tablet PO 7.5 mg QHS SUZANNE Administration Morphine Sulfate 2 mg 12/26/23 12:39 12/27/23 13:28 Morphine Sulfate (*Crx) 2 Mg/Ml Inj IV PUSH 2 mg Q4H PRN Administration Pain Rated 7-10 Ondansetron HCl 4 mg 12/26/23 12:39 Ondansetron Inj 4 Mg/2 Ml Vial IV PUSH Q6H PRN Nausea And Vomiting Polyethylene Glycol 17 gm 12/26/23 09:00 12/27/23 07:52 Polyethylene Glycol 3350 17 Gm Powd.Pack PO Not Given QAM [facility] Tolterodine Tartrate 2 mg 12/26/23 12:45 12/27/23 07:52 Tolterodine Tartrate 2 Mg Tablet PO 2 mg Q12HR SUZANNE Administration Radiology Results: ITS Impressions Abdomen/Pelvis CT 12/26/23 06:11 IMPRESSION: 1. Prominent stool in the distal colon with distention of the sigmoid colon. 2. Sacral decubitus ulcer with chronic volume loss of the sacrum, which may be surgica
[2023-12-27 14:42] VITALS: O2SAT 100
== END 2023-12-27 14:20 | disposition home or self-care (01) ==
LOC: ANHED 05:06 → ANH3MEDSUR 07:15
PROVIDERS: Admitting Provider Internal Medicine; Emergency Provider Physician Assistant; PCP Family Medicine Adolescent Medicine; Visit Provider Internal Medicine
DX: K52.89 Other specified noninfective gastroenteritis and colitis (principal); L89.154 Pressure ulcer of sacral region, stage 4; K59.03 Drug induced constipation; T40.2X5A Adverse effect of other opioids, initial encounter; G82.20 Paraplegia, unspecified; F12.90 Cannabis use, unspecified, uncomplicated; Z79.891 Long term (current) use of opiate analgesic
CPT/HCPCS: 36415; 74177; 80053; 81001; 81025; 83690; 85025; 96372; 96374; 96376; 99285; A9270; G0378; J1650; J2270; Q9967

== ENCOUNTER 2024-01-05 07:15 | Outpatient (RCR) | payer OTHER, SELFPAY ==
[2023-10-14 09:37] VITALS: BMI 18.2
--- NOTE | 2023-10-27 08:37 | PCWOUND ---
WOCN NOTE Patient cancelled today due to in the family. Will call back to reschedule.
== END 2024-01-12 23:59 | disposition home or self-care (01) ==
LOC: ANHWOC 07:15
PROVIDERS: PCP Family Medicine Adolescent Medicine; Visit Provider Nurse Practitioner Family
DX: L89.154 Pressure ulcer of sacral region, stage 4 (principal)
CPT/HCPCS: 99213; 99214; G0463

== ENCOUNTER 2024-02-09 14:15 | Outpatient (RCR) | payer OTHER, SELFPAY ==
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
--- NOTE | 2023-11-14 12:13 | OPREHPOC ---
Outpatient Therapy Plan of Care This is a Multidisciplinary Plan of Care that may contain components documented by all disciplines (PT, OT, and ST.) OT Problem 1 OT Problem #1 Knowledge Deficit OT Goal 1 Goal 1. Patient/significant other to be independent with instructed materials. Target Visit 10 OT Problem 2 OT Problem #2 Impaired Flexibility OT Goal 1 Goal 1. Patient to increase functional flexibility of the right elbow to 130 degrees of extension. 2. Patient to be independent with gross UE stretching HEP targeting the shoulders and elbows. Target Visit 10 OT Problem 3 OT Problem #3 Impaired Strength OT Goal 1 Goal 1. Patient to increase (R) gross shoulder strength to 4/5. 2. Patient to increase (L) gross shoulder strength to 4+/5. OT Problem 4 OT Problem #4 Impaired Functional ADLs OT Goal 1 Goal 1. Patient to be able to utilize compensatory techniques and/or adaptive equipment to be able to complete her make-up and grooming routine independently. Target Visit 10
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
--- NOTE | 2023-12-08 08:34 | PCOTNOTE ---
Patient called & cancelled scheduled appointment this date due to illness.
--- NOTE | 2023-12-22 12:03 | OTOPPROG ---
Assessment and note entered by Elier Eric, ALLA/Ariadne, CHT OT Progress Update 12/22/23 Assessment Status Progress Diagnosis Paraplegia Onset 02/26/2020 Subjective Information Patient reporting she is feeling stronger, noting she cane lift her arms higher. She also is having less pain with UE use and ROM. She has been using her right UE for more tasks, like writing, using her phone, and trying to feed herself. She has been having an easier time self-propelling her wheelchair also. Assessment OT Clinical Summary Patient referred to OT with dx of paraplegia. 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 She has been participating in OT x4 weeks and has been compliant with all materials and very motivated. Reassessment today showing progress with functional strength, flexibility, and function. She continues to have no active triceps, wrist flexors, finger flexors. The right elbow ROM is more flexible. Shoulder strength and flexibility has improved which has allowed for improved ability to reach up and behind her head. Continued skilled OT indicated to maximize functional ROM/ flexibility, strength, and function via therapeutic exercise, adaptive ADL techniques, and HEP instruction and progression. Plan of Care Interventions Therapeutic Exercise,Manual Therapy,Therapeutic Activities,Hot Pack/Cold Pack,Check Out for Orthotic/Pr OT Services Indicated Yes Treatment Frequency and 2x/week for 10 visits Duration These treatments will address the objective and functional deficits as defined above. The patient will be advanced safely and appropriately in order for the patient to progress towards his/her prior level of function. Additional exercises will be introduced and as well as a comprehensive home exercise program upon discharge, if needed, ?to ensure carryover of functional gains achieved in the clinic. This treatment plan has been reviewed and agreement upon by the patient.
--- NOTE | 2023-12-22 12:03 | OPREHPOC ---
Outpatient Therapy Plan of Care This is a Multidisciplinary Plan of Care that may contain components documented by all disciplines (PT, OT, and ST.) PT Problem 1 PT Problem #1 Knowledge Deficit PT Goal 1 Goal Pt will demo knowledge of diagnosis and prognosis, HEPs Target Visit 10 PT Problem 2 PT Problem #2 Impaired Balance PT Goal 1 Goal Pt will demo improved dynamic sitting balance to good x 5 to 10 min to improve safety with sitting tasks Target Visit 10 PT Problem 3 PT Problem #3 Impaired Strength PT Goal 1 Goal Pt will demo 1/5 grossly for BLEs Target Visit 10 PT Goal 2 Goal Pt will demo 3+/5 trunk strength Target Visit 10 OT Problem 1 OT Problem #1 Knowledge Deficit OT Goal 1 Goal 1. Patient/significant other to be independent with instructed materials. ---OT POC UPDATE 12/22/23--- 1. Met, continue as HEP is progressed Target Visit 20 OT Problem 2 OT Problem #2 Impaired Flexibility OT Goal 1 Goal 1. Patient to increase functional flexibility of the right elbow to 130 degrees of extension. 2. Patient to be independent with gross UE stretching HEP targeting the shoulders and elbows. ---OT POC UPDATE 12/22/23--- 1. Progressing, continue 2. Met Target Visit 20 OT Problem 3 OT Problem #3 Impaired Strength OT Goal 1 Goal 1. Patient to increase (R) gross shoulder strength to 4/5. 2. Patient to increase (L) gross shoulder strength to 4+/5. ---OT POC UPDATE 12/22/23--- 1. Not met, continue 2. Not met, continue NEW GOAL: 3. Patient to increase bilateral wrist extension strength to 4/5. Target Visit 20 OT Problem 4 OT Problem #4 Impaired Functional ADLs OT Goal 1 Goal 1. Patient to be a
--- NOTE | 2023-12-27 09:06 | PCOTNOTE ---
Patient called & cancelled scheduled appointment this date due to being at the hospital.
--- NOTE | 2023-12-27 09:22 | PCPTNOTE ---
Pt canceled as she is still in the hospital.
--- NOTE | 2024-01-10 15:10 | PTOPPROG ---
Assessment and note entered by Nayely Pfeiffer, PT Progress Report Assessment Status Progress Diagnosis G82.20 paraplegia/weakness Onset February 2020 Subjective Information am improving is able to roll from her back to her stomach and move around bed easier; when sitting at her desk,in her power w/c, is able to move her trunk better and move her arms; at home using the power control chair; is able to feel more of her body--still have spasms in her legs; want to work on standing; Assessment PT Clinical Summary Lalit has received 9 PT session. Compared to initial evaluation: increase strength of trunk, sitting balance and bed mobility; she is now able to tolerate prone position and prop herself up on her elbows indep. Initiation of the standing table/EZ stander today--she tolerated standing for 5 minutes without any issues. The goals were partially met. Continue PT treatment. Progression to standing with the EZ Stander. Pt hopes to be able to get a standing w/c in the future. Plan of Care Interventions Manual Therapy,Patient/Caregiver Education, Therapeutic Activities,Therapeutic Exercise PT Services Indicated Yes Treatment Frequency and 1-2x/wk for 10 visits Duration These treatments will address the objective and functional deficits as defined above. The patient will be advanced safely and appropriately in order for the patient to progress towards his/her prior level of function. Additional exercises will be introduced and as well as a comprehensive home exercise program upon discharge, if needed, ?to ensure carryover of functional gains achieved in the clinic. This treatment plan has been reviewed and agreement upon by the patient.
--- NOTE | 2024-01-10 15:11 | OPREHPOC ---
Outpatient Therapy Plan of Care This is a Multidisciplinary Plan of Care that may contain components documented by all disciplines (PT, OT, and ST.) PT Problem 1 PT Problem #1 Knowledge Deficit PT Goal 1 Goal / Goal Update Pt will demo knowledge of diagnosis and prognosis, HEPs Target Visit 10 Progress Met PT Goal 2 Goal / Goal Update 01-10-24 progress met goal continue to progress HEP and education Target Visit 19 PT Problem 2 PT Problem #2 Impaired Balance PT Goal 1 Goal / Goal Update Pt will demo improved dynamic sitting balance to good x 5 to 10 min to improve safety with sitting tasks Target Visit 10 Progress Not Met PT Goal 2 Goal / Goal Update 01-10-24 progress goal not met; NEW GOALS: 1* static sit at edge of mat, without UE support x 6 minutes 2* sit at edge of mat, with trunk rotation R/L ~ 30' range x 5 reps Target Visit 19 PT Problem 3 PT Problem #3 Impaired Strength PT Goal 1 Goal / Goal Update Pt will demo 1/5 grossly for BLEs Target Visit 10 PT Goal 2 Goal / Goal Update Pt will demo 3+/5 trunk strength 01-10-24 progress goals not met NEW GOALS: increase trunk & hip strength: 1* in hook lying able to hold LE position x 20 seconds 2* in supine, able to roll to prone without assist 3* pt able to tolerate standing in the EZ stander x 15 minutes Target Visit 19 Progress Not Met OT Problem 1 OT Problem #1 Knowledge Deficit OT Goal 1 Goal / Goal Update 1. Patient/significant other to be independent with instructed materials. ---OT POC
--- NOTE | 2024-01-31 12:06 | OTOPPROG ---
Assessment and note entered by ALLA Mcconnell/Ariadne, INLAYT OT Progress Update 01/31/24 Assessment Status Progress Diagnosis Paraplegia Onset 02/26/2020 Subjective Information Patient reporting functional progress in the last month. She states she was able to take off her sweatshirt the other day. She reports improved mobility and strength of her arms/hands. She noticed her right thumb is moving now. She continues to try to use the right hand for more tasks, however she continues to have difficulties due to reduced wrist control. The left hand continues to be her dominant hand for writing, using her phone, and feeding herself. She reports she is having an easier time to propel her wheelchair and managing the brakes on her wheelchair. Assessment OT Clinical Summary Patient referred to OT with dx of paraplegia. 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 She has been participating in OT x8 weeks and has been compliant with all materials and very motivated. Reassessment today showing progress with functional strength and function. She continues to have no active triceps, wrist flexors, finger flexors. The right elbow ROM remained at 60 deg extension lag. Shoulder strength and flexibility has improved which has allowed for improved ability to reach up and behind her head and help with dressing tasks. Continued skilled OT indicated to maximize functional ROM/flexibility, strength, and function via therapeutic exercise, adaptive ADL techniques, and HEP instruction and progression. Plan of Care Interventions Therapeutic Exercise,Manual Therapy,Therapeutic Activities,Hot Pack/Cold Pack,Check Out for Orthotic/Pr OT Services Indicated Yes Treatment Frequency and 2x/week for 10 visits Duration These treatments will address the objective and functional deficits as defined above. The patient will be advanced safely and appropriately in order for the patient to progress towards his/her prior level of function. Additional exercises will be introduced and as well as a comprehensive home exercise program upon discharge, if needed, ?to ensure carryover of functional gains achieved in the clinic. This treatment plan has been reviewed and agreement upon by the patient.
== END 2024-02-12 23:59 | disposition home or self-care (01) ==
LOC: ANHPT 14:15
PROVIDERS: PCP Family Medicine Adolescent Medicine; Visit Provider Nurse Practitioner Family
DX: G82.20 Paraplegia, unspecified (principal)
CPT/HCPCS: 97110; 97112; 97140; 97161; 97167; 97530; 97535; L3702

== ENCOUNTER 2024-03-12 13:15 | Outpatient (RCR) | payer OTHER, SELFPAY ==
--- NOTE | 2024-02-21 14:11 | OPREHPOC ---
Outpatient Therapy Plan of Care This is a Multidisciplinary Plan of Care that may contain components documented by all disciplines (PT, OT, and ST.) PT Problem 1 PT Problem #1 Knowledge Deficit PT Goal 1 Goal / Goal Update Pt will demo knowledge of diagnosis and prognosis, HEPs Target Visit 10 Progress Met PT Goal 2 Goal / Goal Update 01-10-24 progress met goal continue to progress HEP and education Target Visit 19 PT Problem 2 PT Problem #2 Impaired Balance PT Goal 1 Goal / Goal Update Pt will demo improved dynamic sitting balance to good x 5 to 10 min to improve safety with sitting tasks Target Visit 24 Progress Not Met PT Goal 2 Goal / Goal Update NEW GOALS: 1* static sit at edge of mat, without UE support x 6 minutes 2* sit at edge of mat, with trunk rotation R/L ~ 30' range x 5 reps Target Visit 24 PT Problem 3 PT Problem #3 Impaired Strength PT Goal 1 Goal / Goal Update Pt will demo 1/5 grossly for BLEs Target Visit 24 PT Goal 2 Goal / Goal Update Pt will demo 3+/5 trunk strength GOALS: increase trunk & hip strength: 1* in hook lying able to hold LE position x 20 seconds 2* in supine, able to roll to prone without assist (Continues to need Min A x 1 for LEs) 3* pt able to tolerate standing in the EZ stander x 15 minutes to progress advanced core control Target Visit 24 Progress Not Met OT Problem 1 OT Problem #1 Knowledge Deficit OT Goal 1 Goal / Goal Update 1. Patient/significant other to be independent with instructed materials. ---OT POC UPDATE 12/22/23--- 1. Met, continue as HEP is progressed ---OT POC UDPATE 01/31/24--- 1. Met, continue as HEP is progressed Target Visit 25 OT Problem 2 OT Problem #2 Impaired Flexibility OT Goal 1 Goal / Goal Update 1. Patient to increase functional flexibility of the right elbow to 130 degrees of extension. 2. Patient to be independent with gross UE stretching HEP targeting the shoulders and elbows. ---OT POC UPDATE 12/22/23--- 1. Progressing, continue 2. Met ---OT POC UDPATE 01/31/24--- 1. No change in the last month - monitor goal 2. Met, continue as HEP is progressed Target Visit 25 OT Problem 3 OT Problem #3 Impaired Strength OT Goal 1 Goal / Goal Update 1. Patient to increase (R) gross shoulder strength to 4/5. 2. Patient to increase (L) gross shoulder strength to 4+/5. ---OT POC UPDATE 12/22/23--- 1. Not met, continue 2. Not met, continue NEW GOAL: 3. Patient to increase bilateral wrist extension strength to 4/5. ---OT POC UDPATE 01/31/24--- 1. Progressing, continue 2. Progressing, continue 3. Progressing, continue Target Visit 25 OT Problem 4 OT Problem #4 Impaired Functional ADLs OT Goal 1 Goal / Goal Update 1. Patient to be able to utilize compensatory techniques and/or adaptive equipment to be able to complete her make-up and grooming routine independently. ---OT POC UPDATE 12/22/23--- 1. Progressing, continue goal ---OT POC UDPATE 01/31/24--- 1. Progressing, continue Target Visit 25
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
--- NOTE | 2024-03-12 13:33 | OTOPDC ---
Assessment and note entered by Elier Eric, ALLA/Ariadne, CHT OT D/C Report 03/12/24 Diagnosis Paraplegia Onset 02/26/2020 Subjective Information Patient reporting functional progress in the last month. She states she has been trying to use her right hand more and more, noting improved ability to use her phone and strip picker chips to eat. Otherwise she continues to favor the left hand to feed herself. She has been managing her wheelchair brakes and wheels with more independence. Assessment OT Clinical Summary Patient referred to OT with dx of paraplegia. 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 She has been participating in OT x12 weeks and has been compliant with all materials and very motivated. Reassessment today shows patient's shoulder ROM and strength have progressed to functional limits. Elbow flexion strength has progressed to functional limits. Triceps continue to have no active muscle twitch. Right elbow flexion contracture remained unchanged. She continues to rely on tenodesis for functional able bodied seaman and release. She demonstrates some muscle twitching in her thumbs and left index finger. At this time patient has reached a progress plateau. Discussed taking a break from OT at this time for patient to continue to work on her HEP. It appears she has the potential to continue to see improved muscle contractions distally with more time and concentrated exercises. She is independent with all materials. D/C OT with HEP. Plan of Care OT Services Indicated No
--- NOTE | 2024-04-24 10:07 | PTOPDC ---
Assessment and note entered by Nayely Pfeiffer, PT Discharge Report Assessment Status Discharge - Pt Not Present Diagnosis G82.20 Onset February 2020 Subjective Information pt was not seen this date. Assessment PT Clinical Summary Lalit has received 21 PT sessions, from November 13 to March 12. She then stopped attending therapy. Discharge PT. The goals were not addressed. Plan of Care PT Services Indicated No
== END 2024-04-24 11:22 | disposition home or self-care (01) ==
LOC: ANHPT 13:15
PROVIDERS: PCP Family Medicine Adolescent Medicine; Visit Provider Nurse Practitioner Family
DX: G82.20 Paraplegia, unspecified (principal)
CPT/HCPCS: 97110; 97112; 97140; 97530

== ENCOUNTER 2024-03-29 07:15 | Outpatient (RCR) | payer OTHER, SELFPAY ==
[2024-01-13 00:04] VITALS: BMI 18.2
[2024-02-02 13:32] VITALS: BMI 20.5
[2024-03-01 12:15] VITALS: BMI 19.8
== END 2024-04-23 08:46 | disposition home or self-care (01) ==
LOC: ANHWOC 07:15
PROVIDERS: PCP Family Medicine Adolescent Medicine; Visit Provider Nurse Practitioner Family
DX: L89.154 Pressure ulcer of sacral region, stage 4 (principal)
CPT/HCPCS: 99213; G0463

== ENCOUNTER 2024-06-08 13:20 | Outpatient (NON) | payer OTHER, SELFPAY ==
--- OUTSIDE RECORDS SUMMARY | 2024-06-08 13:26 | XMS_ITS | Clinical Summary ---
Author Organization [facility] Address [address] [place] [address] Care Team Providers Care Granulator Operator Name Role Phone Unavailable Primary Care Provider Unavailabl e Allergies No known active allergies Medications multivitamin w/ minerals (THERA M PLUS) tablet tablet Take 1 tablet by mouth daily with lunch. 0 1 Active acetaminophen (TYLENOL) 325 MG tablet Take 2 tablets (650 mg total) by mouth every 6 (six) hours as needed for mild pain or Temp > or equal to 101F (38.3C). 0 1 Active baclofen (LIORESAL) 10 MG tablet Take 0.5 tablets (5 mg total) by mouth 2 (two) times a day. For muscle spasticity and tone (tightness) 30 tablet 2 1 Active Mouthwashes (Biotene Dry Mouth) liquid Apply 15 mL to the mouth or throat 2 (two) times a day. Use for dry mouth 59 mL 1 Active The Magic Bullet (MAGIC BULLET) suppository Insert 1 suppository (10 mg total) into the rectum after dinner. For bowel movements 0 1 Active Cholecalciferol (VITAMIN D) 50 MCG (2000 UT) tablet tablet Take 1 tablet (2,000 Units total) by mouth daily. 0 1 Active docusate sodium (COLACE) 100 MG capsule Take 1 capsule (100 mg total) by mouth 2 (two) times a day. [id number] stool softener 0 1 Active gabapentin (NEURONTIN) 300 MG capsule Take 1 capsule (300 mg total) by mouth nightly. For nerve pain 30 capsule 2 1 Active ibuprofen (MOTRIN) 400 MG tablet Take 1 tablet (400 mg total) by mouth 3 (three) times a day as needed (severe pain (7-10)). 40 tablet 1 Active melatonin tablet Take 1 tablet (3 mg total) by mouth nightly. For sleep 0 1 Active senna (SENOKOT) 8.6 MG tablet Take 2 tablets (17.2 mg total) by mouth daily with lunch. For bowel movements 0 1 Active sodium chloride (OCEAN) 0.65 % nasal spray Administer 2 sprays into each nostril every 2 (two) hours as needed for congestion. 15 mL 1 Active tolterodine (DETROL) 2 MG tablet Take 1 tablet (2 mg total) by mouth 2 (two) times a day. For bladder incontinence (bladder accidents) 60 tablet 2 1 Active lidocaine (XYLOCAINE) 2 % jelly Apply topically nightly. For use when doing bladder cathing 85 mL 2 1 Active Apixaban (Eliquis) 5 MG tablet Take 1 tablet (5 mg total) by mouth 2 (two) times a day. X 3 more months for blood clot in Lungs 60 tablet 2 1 Active sertraline (ZOLOFT) 50 MG tablet Take 1 tablet (50 mg total) by mouth daily. For mood and depression 30 tablet 2 1 Active Active Problems Problem Noted Date Diagnosed Date Incomplete tetraplegia due t o spinal cord lesion at C1-C4 level 05/21/2020 Neurogenic urinary bladder 05/21/2020 Overview (08/19/2023): August SNOMED Diagnostic import Neurogenic bowel 05/21/2020 Pressure ulcer stage 2 05/21/2020 Anxiety 05/21/2020 Immunizations Name Administration Dates Next Due Influenza, Unspecified 02/14/2020 Social History Tobacco Use Types Packs/Day Years Used Date Smoking Tobacco: Never Alcohol Use Standard Drinks/Week Comments Not Currently 0 (1 standard drink = 0.6 oz pur e alcohol) Comments Unknown Sex and Gender Information Value Date Recorded Sex Assigned at Not on file Legal Sex Female 10:25 AM EST Gender Identity Not on file Sexual Orientation Not on file Last Filed Vital Signs Vital Sign Reading Time Taken Comments Blood Pressure 142/100 07/19/2020 8:15 AM HITTING COACH Pulse 72 07/19/2020 8:15 AM HITTING COACH Temperature 36.7 ??C (98 ??F) 07/19/2020 8:15 AM HITTING COACH Respiratory Rate 16 07/19/2020 8:15 AM HITTING COACH Oxygen Saturation 97% 07/19/2020 8:15 AM HITTING COACH Inhaled Oxygen Concentration - - Weight 65.2 kg (143 lb 11.8 oz) 021 12:00 PM HITTING COACH Height 149.9 cm (4' 11 ) 05/21/2020 3:15 PM HITTING COACH Body Mass Index 29.03 05/21/2020 3:15 PM HITTING COACH Plan of Treatment Not on file Advance Directives * Full Resuscitation (Latest Code Status on File) Date Activated Date Inactivated Comments 05/21/2020 5:47 PM 07/19/2020 2:41 PM
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
--- OUTSIDE RECORDS SUMMARY | 2024-06-08 13:26 | XMS_ITS | Referral Summary ---
Author Organization [facility] Address [address] [place] [address] Care Team Providers Care Farm Instructor Name Role Phone Reva Song NP Primary Care Provider [phone] Encounters Date Type Department Care Team Description 04/26/2024 3:35 PM SUPERVISOR TYPE DISK QUALITY CONTROL Lab [facility] [address] [place] [address] Health [place], [place] [id number] Pressure ulcer of sacral region, stage 4 (HCC) 04/26/2024 2:00 PM SUPERVISOR TYPE DISK QUALITY CONTROL Office Visit [facility] [address] [place] [address] [address] [place] [address] [phone] Pressure ulcer of sacral region, stage 4 (HCC) 04/23/2024 2:44 PM SUPERVISOR TYPE DISK QUALITY CONTROL - 04/23/2024 11:59 PM SUPERVISOR TYPE DISK QUALITY CONTROL Hospital Encounter [facility] [address] [place] [phone] Discharge Disposition: Discharge to home or self care 04/20/2024 Telephone [facility] [address] [place] [address] Outpatient Health [address] [place] [phone] Lili Cao, LÁZARO CARE COORDINATION from Last 3 Months Allergies No known active allergies Medications mirtazapine (REMERON) 7.5 mg tablet Take 1 tablet (7.5 mg total) by mouth nightly at bedtime Active HYDROcodone-lobo taminophen (NORCO) 5-325 mg per [...] 09/16/2020 Spasticity 08/29/2020 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[facility]) 07/17/2020 Incomplete quadriplegia due to spinal cord lesion between first and fourth cervical vertebra ([facility]) 05/21/2020 Neurogenic bowel 05/21/2020 Overview (04/26/2024): Last [...] loss anemia 03/05/2020 Acute respiratory failure fo [facility] trauma and surgery ([facility]) 03/05/2020 Bradycardia 03/05/2020 Anxiety 03/01/2020 [...] (04/26/2024): Added automatically from request for surgery [id number] Pneumonia due to methicillin resistant Staphylococcus aureus (MRSA) 02/26/2020 Overview (04/26/2024): Added automatically from request for surgery [id number] Splenic laceration, initial encounter 02/26/2020 Spondylolisthesis of cervical region 02/26/2020 Overview (04/26/2024): Last Assessment & Plan: Condition: stable Source of diagnosis: Diagnosis confirmed from PCP record and currently active Follow up in: Follow up with PCP/specialist as scheduled Traumatic epidural hematoma 02/26/2020 Overview (04/26/2024): Of spine Traumatic hemoperitoneum 02/26/2020 Traumatic pneumothorax 02/26/2020 Social History Tobacco Use Types Packs/Day Years Used Date Smoking Tobacco: Never Assessed Comments Unknown Sex and Gender Information Value Date Recorded Sex Assigned at Not on file Legal Sex Female 8:55 AM CDT Gender Identity Not on file Sexual Orientation Not on file Last Filed Vital Signs Vital Sign Reading Time Taken Comments Blood Pressure 126/85 04/26/2024 2:28 PM SUPERVISOR TYPE DISK QUALITY CONTROL Pulse 70 04/26/2024 2:28 PM SUPERVISOR TYPE DISK QUALITY CONTROL Temperature 36.2 ??C (97.1 ??F) 04/26/2024 2:28 PM CS T Respiratory Rate - - Oxygen Saturation 96% 04/26/2024 2:28 PM SUPERVISOR TYPE DISK QUALITY CONTROL Inhaled Oxygen Concentration - - Weight - - Height - - Body Mass Index - - Plan of Treatment Not on file Procedures Procedure Name Priority Date/Time Associated Diagnosis Comments EGFR Routine 04/26/2024 3:57 PM SUPERVISOR TYPE DISK QUALITY CONTROL Pressure ulcer of sacral region, stage 4 (HCC) PREALBUMIN Routine 04/26/2024 3:57 PM SUPERVISOR TYPE DISK QUALITY CONTROL Pressure ulcer of sacral region, stage 4 (HCC) COMPREHENSIVE METABOLIC PANEL Routine 04/26/2024 3:57 PM SUPERVISOR TYPE DISK QUALITY CONTROL Pressure ulcer of sacral region, stage 4 (HCC) CBC WITHOUT DIFFERENTIAL Routine 04/26/2024 3:57 PM SUPERVISOR TYPE DISK QUALITY CONTROL Pressure ulcer of sacral region, stage 4 (HCC) WOUND CARE Routine 04/26/2024 3:25 PM SUPERVISOR TYPE DISK QUALITY CONTROL CT BODY OUTSIDE REFERENCE Routine 04/23/2024 2:44 PM SUPERVISOR TYPE DISK QUALITY CONTROL from Last 3 Months Results * eGFR (04/26/2024 3:57 PM SUPERVISOR TYPE DISK QUALITY CONTROL) eGFR >90 >=60 mL/min/1. 73 m2 Comment: [...] last reviewed 2021. Blood 04/26/2024 3:57 PM SUPERVISOR TYPE DISK QUALITY CONTROL 04/26/2024 4:42 PM SUPERVISOR TYPE DISK QUALITY CONTROL us Ramses Jones DO LAB BLOOD ORDERABLES Final Result Performing Organization Address City/State/[facility] Co de Phone Number [facility] One [facility] Department [place] [address] * (ABNORMAL) CBC without differential (04/26/2024 3:57 PM SUPERVISOR TYPE DISK QUALITY CONTROL) WBC 8.5 3.8 - 9.9 K/cumm Hgb 12.4 11.9 - 15.5 g/dL [facility] Hct 38.7 35.6 - 45.5 % [facility] Plt 500(H) 150 - 400 K/cumm [facility] MPV 9.8 9.1 - 12.3 fL [facility] RBC 4.47 3.90 - 5.20 M/cumm [facility] MCV 86.6 81.3 - 96.4 fL [facility] MCH 27.7 27.1 - 33.3 pg [facility] MCHC 32.0(L) 32.3 - 35.7 g/dL [facility] RDW CV 14.2 11.1 - 14.9 % [facility] RDW SD 45.6 35.7 - 48.1 fL [facility] NRBC abs 0.00 0.00 - 0.01 K/cumm [facility] Blood 04/26/2024 3:57 PM SUPERVISOR TYPE DISK QUALITY CONTROL 04/26/2024 4:28 PM SUPERVISOR TYPE DISK QUALITY CONTROL Ramses Jones DO LAB BLOOD ORDERABLES Final Result Performing Organization Address City/[facility]/ZIP Co de Phone Number [facility] [place] [address] * (ABNORMAL) Prealbumin (04/26/2024 3:57 PM SUPERVISOR TYPE DISK QUALITY CONTROL) Pathologist [facility] Prealbumin 17.0(L) 20.0 - 40.0 mg/dL Blood 04/26/2024 3:57 PM SUPERVISOR TYPE DISK QUALITY CONTROL 04/26/2024 4:28 PM SUPERVISOR TYPE DISK QUALITY CONTROL Ramses Jones DO LAB BLOOD ORDERABLES Final Result Performing Organization Address [facility] Co de Phone Number [facility] [place] [address] * (ABNORMAL) Comprehensive metabolic panel (04/26/2024 3:57 PM SUPERVISOR TYPE DISK QUALITY CONTROL) Pathologist [facility] Sodium 144 135 - 145 mmol/L Potassium, pl 3.8 3.3 - 4.9 mmol/L [facility] Chloride 109 97 - 110 mmol/L [facility] CO2 23 22 - 32 mmol/L [facility] Anion gap 12 2 - 15 mmol/L [facility] BUN 13 6 - 25 mg/dL [facility] Creatinine 0.41(L) 0.60 - 1.10 mg/dL [facility] Glucose 91 70 - 199 mg/dL [facility] Comment: Interpretive Data Fasting glucose >/= 126 [...] 2022. Calcium 9.5 8.5 - 10.3 mg/dL [facility] Bilirubin, total 0.2 0.1 - 1.2 mg/dL [facility] Protein, pl 7.2 6.5 - 8.5 g/dL [facility] Albumin 3.9 3.5 - 5.0 g/dL [facility] Alk phos 72 40 - 130 Units/L [facility] ALT 18 7 - 45 Units/L [facility] AST 18 10 - 45 Units/L [facility] Blood 04/26/2024 3:57 PM SUPERVISOR TYPE DISK QUALITY CONTROL 04/26/2024 4:29 PM SUPERVISOR TYPE DISK QUALITY CONTROL Ramses Jones DO LAB BLOOD ORDERABLES Final Result [facility] One [facility] [place] [address] * Wound care (04/26/2024 3:25 PM SUPERVISOR TYPE DISK QUALITY CONTROL) Narrative Delmi Cm, LÁZARO - 04/26/2024 3:25 PM SUPERVISOR TYPE DISK QUALITY CONTROL Continue hydraferablue, covered with dry dressing, change every other day or PRN. Wound care performed per order. Ramses Jones DO NURSING WOUND CARE Fi nal Result * CT Body Outside Reference (04/23/2024 2:44 PM SUPERVISOR TYPE DISK QUALITY CONTROL) Impressions RAD_PACS_[facility] - 04/23/2024 2:44 PM SUPERVISOR TYPE DISK QUALITY CONTROL These images are for Reference purposes only and have not been reviewed by [facility] Radiology. ??There will be no report generated by a [facility] Radiologist. Narrative RAD_PACS_[facility] - 04/23/2024 2:44 PM SUPERVISOR TYPE DISK QUALITY CONTROL EXAMINATION: ??Images For Reference Purposes Only us Ramses Jones DO IMG CT PROCEDURES Fin al Result [facility] from Last 3 Months Insurance [facility] Member Subscriber Plan / Payer ( fective 2024-Present) Name:Lalit Christopher Relation to Subscriber:Self Name:Lalit Christopher Payer ID:[id number] (NAIC) Group ID:Not on file Type:MEDICAID RISK OTHER Address: [address] [facility] [place] Care Teams Farm Instructor Relationship Specialty Start Date End Date Reva Song NP [phone] [place] [address] PCP - General Family Practice 01/06/24
--- OUTSIDE RECORDS SUMMARY | 2024-06-08 13:26 | XMS_ITS ---
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) ACTIVE 05/05/2022 IRON DEFICIENCY ANEMIA, UNSPECIFIED (D50.9 - ICD-10-CM ) ACTIVE 05/05/2022 VITAMIN D DEFICIENCY, UNSPECIFIED (E55.9 - ICD-10-CM) ACTIVE 05/05/2022 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) ACTIVE 05/05/2022 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) ACTI VE 05/05/2022 CONSTIPATION, UNSPECIFIED (K59.00 - ICD-10-CM) ACTIVE 05/05/2022 NEUROMUSCULAR DYSFUNCTION OF BLADDER, 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) ACTIVE 05/05/2022 URINARY TRACT INFECTION, SIT E NOT SPECIFIED (N39.0 - ICD-10-CM) ACTIVE 05/05/2022 PRESSURE ULCER OF UNSPECIFIE D SITE, STAGE 4 (L89.94 - ICD-10-CM) ACTIVE 05/05/2022 Results * Individual Tests: UA MICRO W/RFX PCR 2 DAYS / BLOOD / BILIRUBIN / UROBILINOGEN / KETONE / GLUCOSE /PROTEIN / NITRITE / LEUKOCYTES / pH / SPECIFIC GRAVITY / COLOR / CLARITY / MICRO / UTI DISEASE PANEL W/ABX / UTI DISEASE PANEL W/ABX Performed by: [facility] [address] [place] [address] Abhishek SOSA [address] Fang Longoria, Ph.D Component Value Range Date Comment: See Components 07/02/2022 09 :43 pm EST BLOOD 1+ mg/dL NEGATIVE/TRACE 07/02/2022 09 :43 pm EST BILIRUBIN NEGATIVE mg/dL NEGATIVE 07/02/2022 09 :43 pm EST UROBILINOGEN NORMAL mg/dL <2.0 07/02/2022 09:4 3 pm EST KETONE NEGATIVE mg/dL NEGATIVE 07/02/2022 09 :43 pm EST GLUCOSE NEGATIVE mg/dL NEGATIVE 07/02/2022 09 :43 pm EST PROTEIN 1+ mg/dL NEGATIVE/TRACE 07/02/2022 09 :43 pm EST NITRITE NEGATIVE NEGATIVE 07/02/2022 09:4 3 pm EST LEUKOCYTES 4+ Feliciano/uL NEGATIVE 07/02/2022 09:4 3 pm EST pH 6.0 5.0-7.5 07/02/2022 09:4 3 pm EST SPECIFIC GRAVITY 1.024 1.005-1.030 07/02/2022 09:43 pm EST COLOR YELLOW YELLOW 07/02/2022 09:4 3 pm EST CLARITY CLOUDY CLEAR 07/02/2022 09:4 3 pm EST Comment: See Components 07/02/2022 09 :43 pm EST * MICRO Performed by: [facility] [address] [facility] [address] Fang Longoria, Ph.D Component Value Range Date RED BLOOD CELL 11-20 /HPF <3 07/02/2022 09 :43 pm EST WHITE BLOOD CELL >50 /HPF <6 07/02/2022 09:43 pm EST WHITE BLOOD CELL CLUMP PRESENT /HPF NONE 07/02 09:43 pm EST BUDDING YEAST 2+ /HPF NONE 07/02/2022 09: 43 pm EST SQUAMOUS EPITHELIAL 6-10 /HPF <3 07/02/19 09:43 pm EST MUCOUS PRESENT /LPF NONE 07/02/2022 09:4 3 pm EST BACTERIA 1+ /HPF NONE 07/02/2022 09:4 3 pm EST * UTI DISEASE PANEL W/ABX Performed by: [facility] [address] [facility] [address] Fang Longoria, Ph.D Component Value Range Date UTI DISEASE PANEL W/ABX . 06/16 09:43 pm EST UTI DISEASE PANEL W/ABX See Attachment 09:43 pm EST * Individual Tests: COMP METABOLIC PANEL / UA MICRO W/RFX PCR 2 DAYS / BLOOD / BILIRUBIN / UROBILINOGEN / KETONE / GLUCOSE / PROTEIN / NITRITE / LEUKOCYTES / pH / SPECIFIC GRAVITY / COLOR / CLARITY / MICRO / UTI DISEASE PANEL W/ABX / UTI DISEASE PANEL W/ABX Performed by: [place] [address] Fang Longoria, Ph.D Component Value Range Date Comment: See Components 06/22/2022 02 :27 pm EST BLOOD 2+ mg/dL NEGATIVE/TRACE 06/22/2022 02 :27 pm EST BILIRUBIN NEGATIVE mg/dL NEGATIVE 06/22/2022 02 :27 pm EST UROBILINOGEN NORMAL mg/dL <2.0 06/22/2022 02:2 7 pm EST KETONE 1+ mg/dL NEGATIVE 06/22/2022 02:2 7 pm EST GLUCOSE NEGATIVE mg/dL NEGATIVE 06/22/2022 02 :27 pm EST PROTEIN 1+ mg/dL NEGATIVE/TRACE 06/22/2022 02 :27 pm EST NITRITE POSITIVE NEGATIVE 06/22/2022 02:2 7 pm EST LEUKOCYTES 4+ Feliciano/uL NEGATIVE 06/22/2022 02:2 7 pm EST pH 7.5 5.0-7.5 06/22/2022 02:2 7 pm EST SPECIFIC GRAVITY 1.018 1.005-1.030 06/22/2022 02:27 pm EST COLOR ORANGE YELLOW 06/22/2022 02:2 7 pm EST CLARITY TURBID CLEAR 06/22/2022 02:2 7 pm EST Comment: See Components 06/22/2022 02 :27 pm EST * MICRO Performed by: [facility] [address] [place] [address] Fang Longoria, Ph.D Component Value Range Date RED BLOOD CELL 21-50 /HPF <3 06/22/2022 02 :27 pm EST WHITE BLOOD CELL >50 /HPF <6 06/22/2022 02:27 pm EST WHITE BLOOD CELL CLUMP PRESENT /HPF NONE 06/22 02:27 pm EST BUDDING YEAST 2+ /HPF NONE 06/22/2022 02: 27 pm EST SQUAMOUS EPITHELIAL 3-5 /HPF <3 06/22/19 02:27 pm EST MUCOUS PRESENT /LPF NONE 06/22/2022 02:2 7 pm EST NON-SQUAMOUS EPITHELIAL PRESENT /HPF NONE 11/2022 02:27 pm EST BACTERIA 3+ /HPF NONE 06/22/2022 02:2 7 pm EST * UTI DISEASE PANEL W/ABX Performed by: [id number] [address] [facility] [address] Fang Longoria, Ph.D Component Value Range Date UTI DISEASE PANEL W/ABX . 11/2022 02:27 pm EST UTI DISEASE PANEL W/ABX See Attachment 02:27 pm EST * CBC W/DIFF Performed by: [id number] [facility] [address] [facility] [address] Fang Longoria, Ph.D Component Value Range Date WBC 10.1 10^3/uL 3.8-11.8 06/21/2022 05:0 8 pm EST RBC 4.17 10^6/uL 3.63-4.92 06/21/2022 05:0 8 pm EST HGB 11.8 g/dL 10.9-14.3 06/21/2022 05:0 8 pm EST HCT 36.5 % 31.2-41.9 06/21/2022 05:0 8 pm EST MCV 87.4 fL 75.5-95.3 06/21/2022 05:0 8 pm EST MCH 28.3 pg 24.7-32.8 06/21/2022 05:0 8 pm EST MCHC 32.4 g/dL 32.3-35.6 06/21/2022 05:0 8 pm EST RDW 15.5 % 12.3-17.7 06/21/2022 05:0 8 pm EST RDW-SD 48.1 fL 37.6-50.3 06/21/2022 05:0 8 pm EST PLT 465 10^3/uL 179-408 06/21/2022 05:0 8 pm EST MPV 8.2 fL 7.9-10.8 06/21/2022 05:0 8 pm EST NE 38.3 % 42.7-76.8 06/21/2022 05:0 8 pm EST LY 46.0 % 16.0-45.9 06/21/2022 05:0 8 pm EST MO 12.3 % 4.3-10.9 06/21/2022 05:0 8 pm EST EO 2.6 % 0.5-7.0 06/21/2022 05:0 8 pm EST BA 0.8 % 0.2-1.3 06/21/2022 05:0 8 pm EST NE# 3.9 10^3/uL 1.9-8.2 06/21/2022 05:0 8 pm EST LY# 4.6 10^3/uL 1.1-3.1 06/21/2022 05:0 8 pm EST MO# 1.2 10^3/uL 0.2-0.9 06/21/2022 05:0 8 pm EST EO# 0.3 10^3/uL 0.0-0.5 06/21/2022 05:0 8 pm EST BA# 0.1 10^3/uL 0.0-0.1 06/21/2022 05:0 8 pm EST NRBC 0.2 /100 WBC 0.0-0.3 06/21/2022 05:0 8 pm EST NRBC# 0.02 10^3/uL 0.00-0.02 06/21/2022 05:0 8 pm EST * COMP METABOLIC PANEL Performed by: [facility] [id number] [facility] [address] Fang Longoria, Ph.D Component Value Range Date SODIUM 137 mEq/L 136-145 06/21/2022 05:0 8 pm EST POTASSIUM 3.6 mEq/L 3.5-5.1 06/21/2022 05:0 8 pm EST CHLORIDE 103 mEq/L 98-107 06/21/2022 05:0 8 pm EST BICARBONATE (CO2) 23 mEq/L 21-31 06/21/2022 05:08 pm EST CALCIUM 9.1 mg/dL 8.6-10.3 06/21/2022 05:0 8 pm EST TOTAL PROTEIN 6.3 g/dL 6.4-8.9 06/21/2022 05: 08 pm EST GLUCOSE 102 mg/dL 74-109 06/21/2022 05:0 8 pm EST ALBUMIN 3.6 g/dL 3.5-5.7 06/21/2022 05:0 8 pm EST UREA NITROGEN (BUN) 12 mg/dL 7-25 06/21/19 23 05:08 pm EST CREATININE 0.26 mg/dL 0.60-1.20 06/21/2022 05:0 8 pm EST ALKALINE PHOSPHATASE 58 U/L 42-98 023 05:08 pm EST ALT (SGPT) 17 U/L 7-52 06/21/2022 05:0 8 pm EST AST (SGOT) 16 U/L 13-39 06/21/2022 05:0 8 pm EST TOTAL BILIRUBIN 0.3 mg/dL 0.3-1.0 06/21/2022 0 5:08 pm EST GLOBULIN 2.7 mg/dL 2.3-3.5 06/21/2022 05:0 8 pm EST A/G RATIO 1.33 g/dL 1.2-2.2 06/21/2022 05:0 8 pm EST BUN/CREA RATIO 46 6-22 06/21/2022 05 :08 pm EST ANION GAP 11 mmol/L 10-21 06/21/2022 05:0 8 pm EST eGFRcr >125 60-125 06/21/2022 05:0 8 pm EST COMP METABOLIC PANEL See Attachment 06/21 05:08 pm EST * Individual Tests: UA MICRO W/NO REFLEX / BLOOD / BILIRUBIN / UROBILINOGEN / KETONE / GLUCOSE / PROTEIN / NITRITE / LEUKOCYTES / pH / SPECIFIC GRAVITY / COLOR / CLARITY / MICRO / CULTURE, URINE Performed by: [facility] [id number] [place] [address] Fang Longoria, Ph.D Component Value Range Date Comment: See Components 06/02/2022 03 :39 pm EST BLOOD NEGATIVE mg/dL NEGATIVE/TRACE 06/02/2022 03:39 pm EST BILIRUBIN NEGATIVE mg/dL NEGATIVE 06/02/2022 03 :39 pm EST UROBILINOGEN NORMAL mg/dL <2.0 06/02/2022 03:3 9 pm EST KETONE NEGATIVE mg/dL NEGATIVE 06/02/2022 03 :39 pm EST GLUCOSE NEGATIVE mg/dL NEGATIVE 06/02/2022 03 :39 pm EST PROTEIN 2+ mg/dL NEGATIVE/TRACE 06/02/2022 03 :39 pm EST NITRITE NEGATIVE NEGATIVE 06/02/2022 03:3 9 pm EST LEUKOCYTES 4+ Feliciano/uL NEGATIVE 06/02/2022 03:3 9 pm EST pH 6.0 5.0-7.5 06/02/2022 03:3 9 pm EST SPECIFIC GRAVITY 1.042 1.005-1.030 06/02/2022 03:39 pm EST COLOR YELLOW YELLOW 06/02/2022 03:3 9 pm EST CLARITY TURBID CLEAR 06/02/2022 03:3 9 pm EST CULTURE, URINE . 06/02/2022 03 :39 pm EST * MICRO Performed by: [id number] [id number] [place] [address] Fang Longoria, Ph.D Component Value Range Date RED BLOOD CELL 21-50 /HPF <3 06/02/2022 03 :39 pm EST WHITE BLOOD CELL >50 /HPF <6 06/02/2022 03:39 pm EST WHITE BLOOD CELL CLUMP PRESENT /HPF NONE 06/02 03:39 pm EST BACTERIA NONE /HPF NONE 06/02/2022 03:3 9 pm EST SQUAMOUS EPITHELIAL >20 /HPF <3 06/02/19 03:39 pm EST MUCOUS PRESENT /LPF NONE 06/02/2022 03:3 9 pm EST NON-SQUAMOUS EPITHELIAL PRESENT /HPF NONE 05/16 03:39 pm EST HYALINE CAST PRESENT /LPF NONE 06/02/2022 03:3 9 pm EST MICRO See Attachment 06/02/2022 03 :39 pm EST * CULTURE, BLOOD Performed by: [employer] [id number] [facility] [place] [address] SAMANTHA BRASHER M.D. Component Value Range Date CULTURE, BLOOD . 06/02/2022 03 :28 pm EST CULTURE, BLOOD See Attachment 06/02/2022 03:28 pm EST * CULTURE, BLOOD Performed by: [employer] [address] [facility] [place] [address] SAMANTHA BRASHER M.D. Component Value Range Date CULTURE, BLOOD . 06/02/2022 03 :27 pm EST CULTURE, BLOOD See Attachment 06/02/2022 03:27 pm EST * Individual Tests: ORDERING ISSUE Performed by: [place] [address] Fang Longoria, Ph.D Component Value Range Date ORDERING ISSUE See Attachment 05/27/2022 01:08 pm EST * Individual Tests: CBC W/DIFF / COMP METABOLIC PANEL / UA MICRO W/RFX PCR 2 DAYS / UROBILINOGEN Performed by: [facility] [address] [place] [address] Fang Longoria, Ph.D Component Value Range Date Comment: See Components 05/27/2022 11 :49 am EST UROBILINOGEN See Attachment 05/27/2022 11 :49 am EST * CBC W/DIFF Performed by: [facility] [address] Fang Longoria, Ph.D Component Value Range Date WBC 10.4 10^3/uL 3.8-11.8 05/27/2022 11:4 9 am EST RBC 3.52 10^6/uL 3.63-4.92 05/27/2022 11:4 9 am EST HGB 10.0 g/dL 10.9-14.3 05/27/2022 11:4 9 am EST HCT 30.1 % 31.2-41.9 05/27/2022 11:4 9 am EST MCV 85.5 fL 75.5-95.3 05/27/2022 11:4 9 am EST MCH 28.4 pg 24.7-32.8 05/27/2022 11:4 9 am EST MCHC 33.2 g/dL 32.3-35.6 05/27/2022 11:4 9 am EST RDW 16.6 % 12.3-17.7 05/27/2022 11:4 9 am EST RDW-SD 50.3 fL 37.6-50.3 05/27/2022 11:4 9 am EST PLT 376 10^3/uL 179-408 05/27/2022 11:4 9 am EST MPV 8.4 fL 7.9-10.8 05/27/2022 11:4 9 am EST NE 38.2 % 42.7-76.8 05/27/2022 11:4 9 am EST LY 47.5 % 16.0-45.9 05/27/2022 11:4 9 am EST MO 9.6 % 4.3-10.9 05/27/2022 11:4 9 am EST EO 4.1 % 0.5-7.0 05/27/2022 11:4 9 am EST BA 0.6 % 0.2-1.3 05/27/2022 11:4 9 am EST NE# 4.0 10^3/uL 1.9-8.2 05/27/2022 11:4 9 am EST LY# 4.9 10^3/uL 1.1-3.1 05/27/2022 11:4 9 am EST MO# 1.0 10^3/uL 0.2-0.9 05/27/2022 11:4 9 am EST EO# 0.4 10^3/uL 0.0-0.5 05/27/2022 11:4 9 am EST BA# 0.1 10^3/uL 0.0-0.1 05/27/2022 11:4 9 am EST NRBC 0.1 /100 WBC 0.0-0.3 05/27/2022 11:4 9 am EST NRBC# 0.01 10^3/uL 0.00-0.02 05/27/2022 11:4 9 am EST * COMP METABOLIC PANEL Performed by: [facility] [address] [place] [address] Fang Longoria, Ph.D Component Value Range Date SODIUM 137 mEq/L 136-145 05/27/2022 11:4 9 am EST POTASSIUM 3.6 mEq/L 3.5-5.1 05/27/2022 11:4 9 am EST CHLORIDE 106 mEq/L 98-107 05/27/2022 11:4 9 am EST BICARBONATE (CO2) 25 mEq/L 21-31 05/27/2022 11:49 am EST CALCIUM 8.4 mg/dL 8.6-10.3 05/27/2022 11:4 9 am EST TOTAL PROTEIN 5.7 g/dL 6.4-8.9 05/27/2022 11: 49 am EST GLUCOSE 99 mg/dL 74-109 05/27/2022 11:4 9 am EST ALBUMIN 3.3 g/dL 3.5-5.7 05/27/2022 11:4 9 am EST UREA NITROGEN (BUN) 14 mg/dL 7-25 05/27/19 23 11:49 am EST CREATININE 0.29 mg/dL 0.60-1.20 05/27/2022 11:4 9 am EST ALKALINE PHOSPHATASE 57 U/L 42-98 023 11:49 am EST ALT (SGPT) 24 U/L 7-52 05/27/2022 11:4 9 am EST AST (SGOT) 14 U/L 13-39 05/27/2022 11:4 9 am EST TOTAL BILIRUBIN 0.2 mg/dL 0.3-1.0 05/27/2022 1 1:49 am EST GLOBULIN 2.4 mg/dL 2.3-3.5 05/27/2022 11:4 9 am EST A/G RATIO 1.37 g/dL 1.2-2.2 05/27/2022 11:4 9 am EST BUN/CREA RATIO 48 6-22 05/27/2022 11 :49 am EST ANION GAP 6 mmol/L 10-21 05/27/2022 11:4 9 am EST eGFRcr >125 60-125 05/27/2022 11:4 9 am EST * Individual Tests: CBC W/DIFF / COMP METABOLIC PANEL / PT/INR / UA MICRO W/RFX PCR 2 DAYS / BLOOD / BILIRUBIN / UROBILINOGEN / KETONE / GLUCOSE / PROTEIN / NITRITE / LEUKOCYTES / pH / SPECIFIC GRAVITY/ COLOR / CLARITY / MICRO / TRAVEL ALLOWANCE / VENIPUNCTURE / UT... Performed by: [facility] [address] [place] [address] Fang Longoria, Ph.D Component Value Range Date Comment: See Components 05/10/2022 02 :11 am EST BLOOD 3+ mg/dL NEGATIVE/TRACE 05/10/2022 02 :11 am EST BILIRUBIN NEGATIVE mg/dL NEGATIVE 05/10/2022 02 :11 am EST UROBILINOGEN NORMAL mg/dL <2.0 05/10/2022 02:1 1 am EST KETONE NEGATIVE mg/dL NEGATIVE 05/10/2022 02 :11 am EST GLUCOSE NEGATIVE mg/dL NEGATIVE 05/10/2022 02 :11 am EST PROTEIN 1+ mg/dL NEGATIVE/TRACE 05/10/2022 02 :11 am EST NITRITE POSITIVE NEGATIVE 05/10/2022 02:1 1 am EST LEUKOCYTES 4+ Feliciano/uL NEGATIVE 05/10/2022 02:1 1 am EST pH 6.5 5.0-7.5 05/10/2022 02:1 1 am EST SPECIFIC GRAVITY 1.009 1.005-1.030 05/10/2022 02:11 am EST COLOR ORANGE YELLOW 05/10/2022 02:1 1 am EST CLARITY TURBID CLEAR 05/10/2022 02:1 1 am EST TRAVEL ALLOWANCE * 05/10/2022 02:11 am EST VENIPUNCTURE * 05/10/2022 02:1 1 am EST Comment: See Components 05/10/2022 02 :11 am EST * CBC W/DIFF Performed by: [facility] [id number] [facility] [address] Fang Longoria, Ph.D Component Value Range Date WBC 8.7 10^3/uL 3.8-11.8 05/10/2022 02:1 1 am EST RBC 3.77 10^6/uL 3.63-4.92 05/10/2022 02:1 1 am EST HGB 10.6 g/dL 10.9-14.3 05/10/2022 02:1 1 am EST HCT 32.0 % 31.2-41.9 05/10/2022 02:1 1 am EST MCV 85.1 fL 75.5-95.3 05/10/2022 02:1 1 am EST MCH 28.3 pg 24.7-32.8 05/10/2022 02:1 1 am EST MCHC 33.2 g/dL 32.3-35.6 05/10/2022 02:1 1 am EST RDW 18.3 % 12.3-17.7 05/10/2022 02:1 1 am EST RDW-SD 54.7 fL 37.6-50.3 05/10/2022 02:1 1 am EST PLT 624 10^3/uL 179-408 05/10/2022 02:1 1 am EST MPV 7.6 fL 7.9-10.8 05/10/2022 02:1 1 am EST NE 40.7 % 42.7-76.8 05/10/2022 02:1 1 am EST LY 45.7 % 16.0-45.9 05/10/2022 02:1 1 am EST MO 6.8 % 4.3-10.9 05/10/2022 02:1 1 am EST EO 5.9 % 0.5-7.0 05/10/2022 02:1 1 am EST BA 0.9 % 0.2-1.3 05/10/2022 02:1 1 am EST NE# 3.5 10^3/uL 1.9-8.2 05/10/2022 02:1 1 am EST LY# 4.0 10^3/uL 1.1-3.1 05/10/2022 02:1 1 am EST MO# 0.6 10^3/uL 0.2-0.9 05/10/2022 02:1 1 am EST EO# 0.5 10^3/uL 0.0-0.5 05/10/2022 02:1 1 am EST BA# 0.1 10^3/uL 0.0-0.1 05/10/2022 02:1 1 am EST NRBC 0.2 /100 WBC 0.0-0.3 05/10/2022 02:1 1 am EST NRBC# 0.02 10^3/uL 0.00-0.02 05/10/2022 02:1 1 am EST * COMP METABOLIC PANEL Performed by: [facility] [address] [place] [address] Fang Longoria, Ph.D Component Value Range Date SODIUM 136 mEq/L 136-145 05/10/2022 02:1 1 am EST POTASSIUM 4.5 mEq/L 3.5-5.1 05/10/2022 02:1 1 am EST CHLORIDE 102 mEq/L 98-107 05/10/2022 02:1 1 am EST BICARBONATE (CO2) 28 mEq/L 21-31 05/10/2022 02:11 am EST CALCIUM 9.1 mg/dL 8.6-10.3 05/10/2022 02:1 1 am EST TOTAL PROTEIN 6.4 g/dL 6.4-8.9 05/10/2022 02: 11 am EST GLUCOSE 95 mg/dL 74-109 05/10/2022 02:1 1 am EST ALBUMIN 3.6 g/dL 3.5-5.7 05/10/2022 02:1 1 am EST UREA NITROGEN (BUN) 12 mg/dL 7-25 05/10/20 02:11 am EST CREATININE 0.26 mg/dL 0.60-1.20 05/10/2022 02:1 1 am EST ALKALINE PHOSPHATASE 70 U/L 42-98 022 02:11 am EST ALT (SGPT) 26 U/L 7-52 05/10/2022 02:1 1 am EST AST (SGOT) 19 U/L 13-39 05/10/2022 02:1 1 am EST TOTAL BILIRUBIN 0.2 mg/dL 0.3-1.0 05/10/2022 0 2:11 am EST GLOBULIN 2.8 mg/dL 2.3-3.5 05/10/2022 02:1 1 am EST A/G RATIO 1.29 g/dL 1.2-2.2 05/10/2022 02:1 1 am EST BUN/CREA RATIO 46 6-22 05/10/2022 02 :11 am EST ANION GAP 6 mmol/L 10-21 05/10/2022 02:1 1 am EST eGFRcr >125 60-125 05/10/2022 02:1 1 am EST * PT/INR Performed by: [facility] [address] [facility] [address] Fang Longoria, Ph.D Component Value Range Date PT 10.3 secs 10.2-12.6 05/10/2022 02:1 1 am EST INR <0.93 05/10/2022 02:1 1 am EST * MICRO Performed by: [facility] [address] [place] [address] Fang Longoria, Ph.D Component Value Range Date RED BLOOD CELL >50 /HPF <3 05/10/2022 02 :11 am EST WHITE BLOOD CELL >50 /HPF <6 05/10/2022 02:11 am EST WHITE BLOOD CELL CLUMP PRESENT /HPF NONE 05/10 02:11 am EST BUDDING YEAST 4+ /HPF NONE 05/10/2022 02: 11 am EST SQUAMOUS EPITHELIAL 6-10 /HPF <3 05/10/20 02:11 am EST MUCOUS PRESENT /LPF NONE 05/10/2022 02:1 1 am EST NON-SQUAMOUS EPITHELIAL PRESENT /HPF NONE 04/16 02:11 am EST BACTERIA 3+ /HPF NONE 05/10/2022 02:1 1 am EST * UTI DISEASE PANEL W/ABX Performed by: [facility] [id number] [place] [address] Fang Longoria, Ph.D Component Value Range Date UTI DISEASE PANEL W/ABX . 04/16 02:11 am EST UTI DISEASE PANEL W/ABX See Attachment 02:11 am EST Encounters Encounter Performer Performer Role Encounter Diagnoses Location Date Discharge - D/C to home/self care - Home - Home [facility] 05/05/2022 06:30 pm EST - 07/12/2022 02:09 pm EST Immunizations Vaccine Date Influenza TB 1 Step [place] (PPD) 05/06/2022 01:00 am EST PPSV23 (Pneumococcal Polysaccharide Vacc ine) Social History
== END 2024-06-08 13:21 | disposition home or self-care (01) ==
LOC: ANHLAB 13:21
PROVIDERS: PCP Family Medicine Adolescent Medicine; Visit Provider Family Medicine
DX: N39.0 Urinary tract infection, site not specified (principal)
CPT/HCPCS: 87086; 87186

== ENCOUNTER 2024-07-07 13:58 | Emergency (ER) | payer OTHER, SELFPAY ==
--- NOTE | ~2024-07-07 | CT_ITS ---
EXAMINATION: CT abdomen pelvis wo con DATE: 07/07/2024 16:49 INDICATION: Abdominal pain. Urinary tract infection. TECHNIQUE: Computed tomography (CT) of the abdomen and pelvis was performed without intravenous contr ast. Automated exposure control and iterative reconstruction technique were employed. The dose-length product was 245.16 mGy-cm. COMPARISON: CT abdomen and pelvis 12/26/2023 FINDINGS: The visualized portions of the lung bases demonstrate mild atelectasis. No pleural effusion . The heart size is normal. No pericardial effusion. The liver, gallbladder, pancreas, adrenal glands , and kidneys are normal. There is splenosis in left upper quadrant. There are no dilated loops of adrianna wel. The appendix is not visualized. There are no pathologically enlarged lymph nodes. There is no fr ee intraperitoneal fluid. There is a sacral decubitus ulcer with packing material. The coccyx is abse nt. There is well-corticated volume loss of the inferior sacrum. There is mild lumbar spondylosis. IMPRESSION: 1. Sacral decubitus ulcer with chronic volume loss in the sacrum, which may be surgical change or chr onic osteomyelitis. Reviewed, dictated and finalized at location A. ON JAVA DEVELOPER IMPRESSION: 1. Sacral decubitus ulcer with chronic volume loss in the sacrum, which may be surgical change or chronic osteomyelitis.
[2024-07-07 13:59] VITALS: BP 136/113; PULSE 108; RESP 16; TEMP 36.6; O2SAT 100
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
--- OUTSIDE RECORDS SUMMARY | 2024-07-07 14:01 | XMS_ITS | Clinical Summary ---
Author Organization [facility] Address [address] [place] [address] Care Team Providers Care Ultrasound Technologist Sonographer Name Role Phone Unavailable Primary Care Provider [...] by mouth 2 (two) times a day. [id number] stool softener 0 1 Active gabapentin (NEURONTIN) [...] ulcer stage 2 05/21/2020 Anxiety 05/21/2020 Immunizations Immunization Administration Dates Next Due Influenza, Unspecified 02/14/2020 [...] Comments Blood Pressure 142/100 07/19/2020 8:15 AM SORTING GRAPPLE OPERATOR Pulse 72 07/19/2020 8:15 AM SORTING GRAPPLE OPERATOR Temperature 36.7 C (98 F) 07/19/2020 8:15 AM SORTING GRAPPLE OPERATOR Respiratory Rate 16 07/19/2020 8:15 AM SORTING GRAPPLE OPERATOR Oxygen Saturation 97% 07/19/2020 8:15 AM SORTING GRAPPLE OPERATOR Inhaled Oxygen Concentration - - Weight 65.2 kg (143 lb 11.8 oz) 021 12:00 PM SORTING GRAPPLE OPERATOR Height 149.9 cm (4' 11 ) 05/21/2020 3:15 PM SORTING GRAPPLE OPERATOR Body Mass Index 29.03 05/21/2020 3:15 PM SORTING GRAPPLE OPERATOR Plan of Treatment Not on file Advance Directives * Full Resuscitation (Latest Code Status on File) Date Activated Date Inactivated Comments 05/21/2020 5:47 PM 07/19/2020 2:41 PM
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
[2024-07-07 15:02] LABS: Basophils Percent Auto 0.3 % (0.2-1.2); Eosinophils Absolute Auto 0.2 K/mm3 (0-0.3); Eosinophils Percent Auto 1.9 % (0-4.4); Hematocrit 38.4 % (37.0-47.0); Hemoglobin 11.9 g/dL (12.0-15.0); Immature Granulocyte Absolute 0.03 K/mm3 (0.00-0.031); Immature Granulocyte Percent A 0.3 % (0-0.5); Lymphocytes Absolute Auto 2.66 K/mm3 (0.9-3.2); Mean Corpuscular Hemoglobin 27.4 pg (26-34); Mean Corpuscular Volume 88.5 fl (80-100); Mean Platelet Volume 9.1 fl (7.4-10.4); Monocytes Absolute Auto 0.9 K/mm3 (0.1-0.6); Monocytes Percent Auto 7.5 % (2.6-8.5); Neutrophils Absolute Auto 7.7 K/mm3 (1.3-6.7); Platelet Count Result 495 k/mm3 (150-375); Red Blood Count 4.34 M/mm3 (4.2-5.4); Red Cell Distribution Width 16.3 % (11.5-14.5); White Blood Count 11.6 K/mm3 (4.5-10.0)
[2024-07-07] MEDS: TETANUS,DIPHTHERIA,AC PERTUSSIS ADULT (0.5 ML) BOOSTRIX IM (15:06)
[2024-07-07] MEDS: BACITRACIN OINTMENT 15 GM TUBE 1 APPLIC TOPICAL (15:06)
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
--- OUTSIDE RECORDS SUMMARY | 2024-07-07 15:06 | XMS_ITS | Clinical Summary ---
Author Organization [facility] Address [address] [place] [address] Care Team Providers Care Project Geophysicist Name Role Phone Unavailable Primary Care Provider [...] by mouth 2 (two) times a day. [id number] stool softener 0 1 Active gabapentin (NEURONTIN) [...] Comments Blood Pressure 142/100 07/19/2020 8:15 AM BALANCE TRUER Pulse 72 07/19/2020 8:15 AM BALANCE TRUER Temperature 36.7 C (98 F) 07/19/2020 8:15 AM BALANCE TRUER Respiratory Rate 16 07/19/2020 8:15 AM BALANCE TRUER Oxygen Saturation 97% 07/19/2020 8:15 AM BALANCE TRUER Inhaled Oxygen Concentration - - Weight 65.2 kg (143 lb 11.8 oz) 021 12:00 PM BALANCE TRUER Height 149.9 cm (4' 11 ) 05/21/2020 3:15 PM BALANCE TRUER Body Mass Index 29.03 05/21/2020 3:15 PM BALANCE TRUER Plan of Treatment Not on file Advance Directives * Full Resuscitation (Latest Code Status on File) Date Activated Date Inactivated Comments 05/21/2020 5:47 PM 07/19/2020 2:41 PM
--- OUTSIDE RECORDS SUMMARY | 2024-07-07 15:06 | XMS_ITS | Referral Summary ---
Author Organization [facility] Address [address] [place] [address] Care Team Providers Care Box Folding Machine Operator Name Role Phone Reva Song NP Primary Care Provider [phone] Encounters Date Type Department Care Team Description 04/26/2024 3:35 PM EEO OFFICER Lab [facility] Outpatient Health [address] [place] [address] Health [place], [place] [id number] Pressure ulcer of sacral region, stage 4 (HCC) 04/26/2024 2:00 PM EEO OFFICER [facility] [address] [place] [address] [address] [place] [phone] Pressure ulcer of sacral region, stage 4 (HCC) 04/23/2024 2:44 PM EEO OFFICER - 04/23/2024 11:59 PM EEO OFFICER Hospital Encounter [facility] [address] [place] [address] [phone] Discharge Disposition: Discharge to home or self care 04/20/2024 Telephone [facility] [address] [place] [address] Outpatient Health [address] [place], [place] [phone] Lili Cao, LÁZARO CARE COORDINATION from Last [...] 09/16/2020 Spasticity 08/29/2020 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 07/17/2020 Incomplete quadriplegia due to spinal cord lesion between first and fourth cervical vertebra ([facility] 05/21/2020 Neurogenic bowel 05/21/2020 Overview (04/26/2024): Last [...] loss anemia 03/05/2020 Acute respiratory failure fo [facility] trauma and surgery ([facility]) 03/05/2020 Bradycardia 03/05/2020 Anxiety 03/01/2020 [...] (04/26/2024): Added automatically from request for surgery [id number] Pneumonia due to methicillin resistant Staphylococcus aureus (MRSA) 02/26/2020 Overview (04/26/2024): Added automatically from request for surgery [id number] Splenic laceration, initial encounter 02/26/2020 Spondylolisthesis of [...] Comments Blood Pressure 126/85 04/26/2024 2:28 PM EEO OFFICER Pulse 70 04/26/2024 2:28 PM EEO OFFICER Temperature 36.2 C (97.1 F) 04/26/2024 2:28 PM EEO OFFICER Respiratory Rate - - Oxygen Saturation 96% 04/26/2024 2:28 PM EEO OFFICER Inhaled Oxygen Concentration - - Weight - - Height - - Body Mass Index - - Plan of Treatment Not on file Procedures Procedure Name Priority Date/Time Associated Diagnosis Comments EGFR Routine 04/26/2024 3:57 PM EEO OFFICER Pressure ulcer of sacral region, stage 4 (HCC) PREALBUMIN Routine 04/26/2024 3:57 PM EEO OFFICER Pressure ulcer of sacral region, stage 4 (HCC) COMPREHENSIVE METABOLIC PANEL Routine 04/26/2024 3:57 PM EEO OFFICER Pressure ulcer of sacral region, stage 4 (HCC) CBC WITHOUT DIFFERENTIAL Routine 04/26/2024 3:57 PM EEO OFFICER Pressure ulcer of sacral region, stage 4 (HCC) WOUND CARE Routine 04/26/2024 3:[address] BODY OUTSIDE REFERENCE Routine 04/23/2024 2:44 PM EEO OFFICER from Last 3 Months Results * eGFR (04/26/2024 3:57 PM EEO OFFICER) eGFR >90 >=60 mL/min/1. 73 m2 Comment: [...] last reviewed 2021. Blood 04/26/2024 3:57 PM EEO OFFICER 04/26/2024 4:42 PM EEO OFFICER us Ramses Jones DO LAB BLOOD ORDERABLES Final Result [facility] Department [place] [address] * (ABNORMAL) CBC without differential (04/26/2024 3:57 PM EEO OFFICER) WBC 8.5 3.8 - 9.9 K/cumm Hgb 12.4 11.9 - 15.5 g/dL [facility] Hct 38.7 35.6 - 45.5 % [facility] Plt 500(H) 150 - 400 K/cumm [facility] MPV 9.8 9.1 - 12.3 fL [facility] RBC 4.47 3.90 - 5.20 M/cumm [facility] MCV 86.6 81.3 - 96.4 fL [facility] MCH 27.7 27.1 - 33.3 pg [facility] MCHC 32.0(L) 32.3 - 35.7 g/dL [facility] RDW CV 14.2 11.1 - 14.9 % [facility] RDW SD 45.6 35.7 - 48.1 fL [facility] NRBC abs 0.00 0.00 - 0.01 K/cumm [facility] Blood 04/26/2024 3:57 PM EEO OFFICER 04/26/2024 4:28 PM EEO OFFICER [facility] BLOOD ORDERABLES Final Result Performing Organization Address City/[facility] Co de Phone Number [facility] [place] [address] * (ABNORMAL) Prealbumin (04/26/2024 3:57 PM EEO OFFICER) Pathologist [facility] Prealbumin 17.0(L) 20.0 - 40.0 mg/dL Blood 04/26/2024 3:57 PM EEO OFFICER 04/26/2024 4:28 PM EEO OFFICER [facility] LAB BLOOD ORDERABLES Final Result Performing Organization Address [facility] de Phone Number [facility] [place] [address] * (ABNORMAL) Comprehensive metabolic panel (04/26/2024 3:57 PM EEO OFFICER) Pathologist [facility] Sodium 144 135 - 145 mmol/L Potassium, pl 3.8 3.3 - 4.9 mmol/L [facility] Chloride 109 97 - 110 mmol/L [facility] CO2 23 22 - 32 mmol/L [facility] Anion gap 12 2 - 15 mmol/L [facility] BUN 13 6 - 25 mg/dL [facility] Creatinine 0.41(L) 0.60 - 1.10 mg/dL [facility] Glucose 91 70 - 199 mg/dL [facility] Comment: Interpretive Data Fasting glucose >/= [...] Calcium 9.5 8.5 - 10.3 mg/dL [facility] Bilirubin, total 0.2 0.1 - 1.2 mg/dL [facility] Protein, pl 7.2 6.5 - 8.5 g/dL [facility] Albumin 3.9 3.5 - 5.0 g/dL [facility] Alk phos 72 40 - 130 Units/L [facility] ALT 18 7 - 45 Units/L [facility] AST 18 10 - 45 Units/L [facility] Blood 04/26/2024 3:57 PM EEO OFFICER 04/26/2024 4:29 PM EEO OFFICER Ramses Jones DO LAB BLOOD ORDERABLES Final Result Performing Organization Address [facility] de Phone Number [facility] Department [place] [address] * Wound care (04/26/2024 3:25 PM EEO OFFICER) Narrative Delmi Cm, RN - 04/26/2024 3:25 PM EEO OFFICER Continue hydraferablue, covered with dry dressing, change every other day or PRN. Wound care performed per order. Ramses Jones DO NURSING WOUND CARE Fi nal Result * CT Body Outside Reference (04/23/2024 2:44 PM EEO OFFICER) Impressions RAD_PACS_BJ - 04/23/2024 2:44 PM EEO OFFICER These images are for Reference purposes only and have not been reviewed by [facility] Radiology. There will be no report generated by a [facility] Radiologist. Narrative RAD_PACS_BJ - 04/23/2024 2:44 PM EEO OFFICER EXAMINATION: Images For Reference Purposes Only us Ramses Jones DO IMG CT PROCEDURES Fin al Result Performing Organization Address [facility] Co de Phone Number [facility] from Last 3 Months Insurance [facility] [place] [facility] [place] Care Teams Box Folding Machine Operator Relationship Specialty Start Date End Date Reva Song NP [address] [place] [address] PCP - General Family Practice 01/06/24
[2024-07-07 15:15] LABS: Anion Gap 10 mmol/L (4-12); Blood Urea Nitrogen 7 mg/dL (7-17); Calcium 9.3 mg/dL (8.4-10.2); Carbon Dioxide 19 mmol/L (22-30); Chloride 109 mmol/L (98-107); Estimated Glomerular Filt Rate > 60; Glucose 95 mg/dL (65-110); Potassium 3.5 mmol/L (3.4-5.0); Sodium 138 mmol/L (137-145)
[2024-07-07 15:33] VITALS: O2SAT 98
[2024-07-07 15:47] LABS: Add Urine Microscopic? YES; Appearance Urine Cloudy (Clear); Bacteria Urine 4+ /hpf; Bilirubin Urine Negative (Negative); Blood Urine 3+ (Negative); Color Urine Dark Yellow (Yellow); Glucose Urine UA Negative (Negative); Ketones Urine Trace mg/dL (Negative); Leukocyte Esterase Ur 2+ LEU/UL (Negative); Need Manual Microscopic Reviewed; Nitrate Urine Positive (Negative); Protein Urine 1+ mg/dL (Negative); RBC Urine 21-50 /hpf (0-2); Specific Grav Ur 1.022 (1.001-1.035); Squamous Epithelial Cell Urine Few /hpf (Few); WBC Urine 51-100 /hpf (0-3)
[2024-07-07 16:25] VITALS: BP 121/65; PULSE 89; RESP 20; O2SAT 98
[2024-07-07 16:26] LABS: Pregnancy On Board Control Positive; Urine Pregnancy Test Negative
[2024-07-07] MEDS: CEPHALEXIN 500 MG CAPSULE PO (16:27)
[2024-07-07 16:31] LABS: BEDSIDEPREGUCG Negative (Negative)
[2024-07-07 17:38] VITALS: BP 138/96; PULSE 76; RESP 18; O2SAT 98
== END 2024-07-07 17:59 | disposition home or self-care (01) ==
LOC: ANHED 15:05
PROVIDERS: Emergency Provider Physician Assistant; PCP Family Medicine Adolescent Medicine
DX: T21.12XA Burn of first degree of abdominal wall, initial encounter (principal); T31.0 Burns involving less than 10% of body surface; N30.01 Acute cystitis with hematuria; G82.20 Paraplegia, unspecified; S14.104S Unspecified injury at C4 level of cervical spinal cord, sequela; Z23 Encounter for immunization; X58.XXXS Exposure to other specified factors, sequela; Z77.22 Contact with and (suspected) exposure to environmental tobacco smoke (acute) (chronic); X19.XXXA Contact with other heat and hot substances, initial encounter
CPT/HCPCS: 16000; 36415; 74176; 80048; 81001; 81025; 85025; 87086; 87186; 90471; 90715; 99284; A9270

== ENCOUNTER 2024-08-24 07:08 | Outpatient (RCR) | payer OTHER, SELFPAY ==
[2024-06-01 12:30] VITALS: BMI 20.3
--- NOTE | 2024-07-03 10:21 | PCWOUND ---
WOCN NOTE Patient did not show up for appointment.
--- NOTE | 2024-07-31 10:24 | PCWOUND ---
WOCN NOTE Patient did not show up for her apointment.
== END 2024-08-30 23:59 | disposition home or self-care (01) ==
LOC: ANHWOC 07:08
PROVIDERS: PCP Family Medicine Adolescent Medicine; Visit Provider Nurse Practitioner Family
DX: L89.154 Pressure ulcer of sacral region, stage 4 (principal); Z48.00 Encounter for change or removal of nonsurgical wound dressing
CPT/HCPCS: 99213; G0463

== ENCOUNTER 2024-08-30 11:38 | Outpatient (CLI) | payer OTHER, SELFPAY ==
--- OUTSIDE RECORDS SUMMARY | 2024-08-30 12:24 | XMS_ITS | Clinical Summary ---
Author Organization [facility] Address [address] [place] [address] Care Team Providers Care Animal Keeper Name Role Phone Unavailable Primary Care Provider [...] by mouth 2 (two) times a day. [id number] stool softener 0 1 Active gabapentin (NEURONTIN) [...] Comments Blood Pressure 142/100 07/19/2020 8:15 AM PIE BOTTOMER Pulse 72 07/19/2020 8:15 AM PIE BOTTOMER Temperature 36.7 C (98 F) 07/19/2020 8:15 AM PIE BOTTOMER Respiratory Rate 16 07/19/2020 8:15 AM PIE BOTTOMER Oxygen Saturation 97% 07/19/2020 8:15 AM PIE BOTTOMER Inhaled Oxygen Concentration - - Weight 65.2 kg (143 lb 11.8 oz) 021 12:00 PM PIE BOTTOMER Height 149.9 cm (4' 11 ) 05/21/2020 3:15 PM PIE BOTTOMER Body Mass Index 29.03 05/21/2020 3:15 PM PIE BOTTOMER Plan of Treatment Not on file Advance Directives * Full Resuscitation (Latest Code Status on File) Date Activated Date Inactivated Comments 05/21/2020 5:47 PM 07/19/2020 2:41 PM
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
--- OUTSIDE RECORDS SUMMARY | 2024-08-30 12:24 | XMS_ITS | Clinical Summary ---
Author Organization [facility] Address [address] [facility] [place] [address] Care Team Providers Care Weapons Electrical Engineering Officer Name Role Phone Reva Song NP Primary [...] (04/26/2024): Added automatically from request for surgery [id number] Pneumonia due to methicillin resistant Staphylococcus aureus (MRSA) 02/26/2020 Overview (04/26/2024): Added automatically from request for surgery [id number] Splenic laceration, initial encounter 02/26/2020 Spondylolisthesis of [...] Office Visit [facility] [address] [place] [address] Outpatient Health [address] [place] [address] Wound of sacral region, subsequent encounter (Primary Dx) from Last 3 Months Social History Tobacco [...] on file Sexual Orientation Not on file Obstetrics History Last Filed Vital Signs Vital Sign Reading [...] 07/26/2024 2:23 PM CDT Plan of Treatment Health Maintenance Due Date [...] Influenza Vaccine (#1) 2024 02/14/2020 DTaP/Tdap/Td Vaccine (4 - Td or Tdap) 07/07/2034 07/07/2024, 02/26/2020, 04/13/2019 HPV Vaccines Aged Out No [...] Compression: N/A Wound care performed per order. Ramses Marsh Karen DO NURSING WOUND CARE Fi nal Result from Last 3 Months Insurance [facility] D[place] Care Teams Weapons Electrical Engineering Officer Relationship Specialty Start Date End Date Reva Song NP [address] [place], [place] [address] [address] PCP - General Family Practice 01/06/24
== END 2024-08-30 11:39 | disposition home or self-care (01) ==
LOC: ANHLAB 11:38
PROVIDERS: PCP Family Medicine Adolescent Medicine; Visit Provider Family Medicine Adolescent Medicine
DX: N39.0 Urinary tract infection, site not specified (principal)
CPT/HCPCS: 87086; 87186

== ENCOUNTER 2024-09-13 11:00 | Outpatient (RCR) | payer OTHER, SELFPAY ==
--- NOTE | 2024-08-02 11:59 | OPREHPOC ---
Outpatient Therapy Plan of Care This is a Multidisciplinary Plan of Care that may contain components documented by all disciplines (PT, OT, and ST.) PT Problem 1 PT Problem #1 Knowledge Deficit PT Goal 1 Goal / Goal Update *indep with HEP Target Visit 10 PT Problem 2 PT Problem #2 Impaired Functional Mobility PT Goal 1 Goal / Goal Update * pt able to propel her wheelchair on level surface, 200' in 2 minutes Target Visit 10 PT Goal 2 Goal / Goal Update * pt transfer w/c<> mat with sliding board use and moderate assist x1 Target Visit 10 PT Problem 3 PT Problem #3 Impaired Strength PT Goal 1 Goal / Goal Update * pt sit at edge of mat with holding UEs off mat/ lap x 2 minutes Target Visit 10
--- NOTE | 2024-08-02 11:59 | PTOPEVAL1 ---
Assessment and note entered by Nayely Pfeiffer, PT Evaluation Information Assessment Status Evaluation Other ICD-10 Condition Codes ( G82.20 paraplegia PT) Onset 2019 Subjective Information am getting stronger, pushing w/c and able to lock/ unlock chair; home with mari, use of w/c for mobility- have manual and power w/c; he total lifts her for bed/ chair transfer had PT in the past here, have continued to do the exercises-- able to turn over in bed more, can use L arm to help lift her L leg under her thigh; have gained some weight and going to see surgeon about closing up her sacral wound. Goal: transfer myself in/out w/c; push myself in w/c, so mari does not have to push me. Reported Pain Level Pain Score 0: Self Report Assessment PT Clinical Summary Lalit is paraplegic. She has had PT here in the past and has been doing her HEP. The sacral wound is healing, is under care of wound nurse and will be seeing a surgeon about closing the wound. Her mari is lifting her bed-w/c and pushing her wheelchair. She wants to be more independent with her mobility With the evaluation: she is able to propel the wheelchair on level surface, for 85' in 1 minute and 32 seconds, then arms fatigued; sitting tolerance at the edge of the mat, with her hands in her lap for 2 minutes and 55 seconds with rounded posture; sliding board transfer w/c <> mat with mod assist x 1 and min assist x1. She has made improvements since she was last here. Skilled PT services are indicated to increase trunk strength, bed mobility, sit balance, transfer and w/c mobility skills. With education for HEP and activity progression. Plan of Care Interventions Neuro Re-education,Patient/Caregiver Education, Therapeutic Activities,Therapeutic Exercise PT Services Indicated Yes Treatment Frequency and 1-2x/wk for 10 visits Duration These treatments will address the objective and functional deficits as defined above. The patient will be advanced safely and appropriately in order for the patient to progress towards his/her prior level of function. Additional exercises will be introduced and as well as a comprehensive home exercise program upon discharge, if needed, ?to ensure carryover of functional gains achieved in the clinic. This treatment plan has been reviewed and agreement upon by the patient.
--- NOTE | 2024-09-13 11:56 | OPREHPOC ---
Outpatient Therapy Plan of Care This is a Multidisciplinary Plan of Care that may contain components documented by all disciplines (PT, OT, and ST.) PT Problem 1 PT Problem #1 Knowledge Deficit PT Goal 1 Goal / Goal Update *iindep with HEP --------- -25 d/c goal met Target Visit 10 Progress Met PT Problem 2 PT Problem #2 Impaired Functional Mobility PT Goal 1 Goal / Goal Update * pt able to propel her wheelchair on level surface, 200' in 2 minutes --------- 25 d/c goal partially met--distance achieved but not time Target Visit 10 Progress Partially Met PT Goal 2 Goal / Goal Update * pt transfer w/c<> mat with sliding board use and moderate assist x1 --------- -25 d/c goal not met Target Visit 10 Progress Not Met PT Problem 3 PT Problem #3 Impaired Strength PT Goal 1 Goal / Goal Update * pt sit at edge of mat with holding UEs off mat/ lap x 2 minutes --------- 25 d/c goal not met Target Visit 10 Progress Not Met
--- NOTE | 2024-09-13 11:57 | PTOPDC ---
Assessment and note entered by Nayely Pfeiffer, PT Assessment Status Discharge Other ICD-10 Condition Codes ( G82.20 paraplegia PT) Onset 2019 Subjective Information my sitting up is better, can hold myself up better with dressing; have not been able to work on pushing my chair because it is raining and bad outside; they are going to put a ramp on the front door, do not have it yet; in the house is using the motorized w/c with hand control; use the manual w/c when going out; when get the ramp done, will be able to take the motorized chair out and go places. have been doing the exercises at home and lying on my stomach to stretch my hips and legs out; going in October for surgical consultation about closing my wound. Reported Pain Level Pain Score 5: Self Report Additional Pain Score Comments discomfort, cramping and pain in abdomen; recently completed antibiotics for UTI Assessment PT Clinical Summary Lalit has received 8 PT sessions. Compared to the initial evaluation: able to propel her wheelchair on level surfaces from 85' in 1 minutes and 32 seconds to 230' in 6 minutes, with 1 rest break at 160' due to shoulders tired; sitting at edge of mat, with UE in her lap, time from 2 minutes and 55 seconds to 2 minutes and 50 seconds, with rounded posture; education completed for HEP. Reports in home using a motorized chair with hand control and fiancee assisting her with transfer w/c<> bed. The goals were partially met. Discharge PT. She is to continue with her HEP and sitting balance, LE stretching and positioning. Plan of Care PT Services Indicated No
== END 2024-09-13 13:56 | disposition home or self-care (01) ==
LOC: ANHPT 11:00
PROVIDERS: PCP Family Medicine Adolescent Medicine; Visit Provider Nurse Practitioner Family
DX: G82.20 Paraplegia, unspecified (principal)
CPT/HCPCS: 97110; 97140; 97161; 97530

== ENCOUNTER 2024-12-04 05:37 | Emergency (ER) | payer OTHER, SELFPAY ==
--- NOTE | ~2024-12-04 | CT_ITS ---
EXAM: CT abdomen pelvis w con - 12/04/2024 8:38 CDT History: 29 years old Female with LLQ abd pain; vaginal irrigation TECHNIQUE: Multidetector CT of the abdomen and pelvis with intravenous contrast. Coronal and sagitta l reformats were also provided for review. Automatic exposure control was used for this study. CONTRAST: 100 cc of Optiray 350 was used for this study. COMPARISON: None Available. FINDINGS: VISUALIZED CHEST: Visualized lungs are clear. ABDOMEN and PELVIS: LIVER: Within normal limits. GALLBLADDER: No calcified gallstones. BILE DUCTS: No dilatation. SPLEEN: Not seen. Splenosis is seen in left upper quadrant. PANCREAS: Within normal limits. ADRENAL GLANDS: Within normal limits. KIDNEYS and URETERS: No hydronephrosis or hydroureter. No nephroureterolithiasis. URINARY BLADDER: Mac catheter is noted with small amount of intraluminal air. There is abnormal thi ckening of the urinary bladder wall. STOMACH and BOWEL: No abnormal bowel wall thickening. No obstruction. REPRODUCTIVE ORGANS: Within normal limits. MESENTERY/PERITONEAL CAVITY: No free fluid or pneumoperitoneum. LYMPH NODES: No abdominal or pelvic lymphadenopathy. ABDOMINAL WALL: Within normal limits. VASCULATURE: Within normal limits. MUSCULOSKELETAL: Within normal limits. Absent coccyx. As before, there is volume loss of the inferior sacrum. Sacral decubitus ulcer is again seen. IMPRESSION: 1. Abnormal wall thickening of the urinary bladder wall with Mac catheter in it. Correlate with ur inalysis to rule out possible acute cystitis. 2. Sacral decubitus ulcer is again seen. 3. Multiple stable chronic findings, as above. Reviewed, dictated and finalized at location A. IMPRESSION: 1. Abnormal wall thickening of the urinary bladder wall with Mac catheter in it. Correlate with urinalysis to rule out possible acute cystitis. 2. Sacral decubitus ulcer is again seen. 3. Multiple stable chronic findings, as above.
--- OUTSIDE RECORDS SUMMARY | 2024-12-04 05:40 | XMS_ITS | Clinical Summary ---
Author Organization [facility] Address [address] [place] [address] Care Team Providers Care Employment Specialist/Program Manager Name Role Phone Unavailable Primary Care Provider [...] by mouth 2 (two) times a day. Kwod-zoi-txhinxp stool softener 0 1 Active gabapentin (NEURONTIN) [...] Comments Blood Pressure 142/100 07/19/2020 8:15 AM REBAR WORKER Pulse 72 07/19/2020 8:15 AM REBAR WORKER Temperature 36.7 C (98 F) 07/19/2020 8:15 AM REBAR WORKER Respiratory Rate 16 07/19/2020 8:15 AM REBAR WORKER Oxygen Saturation 97% 07/19/2020 8:15 AM REBAR WORKER Inhaled Oxygen Concentration - - Weight 65.2 kg (143 lb 11.8 oz) 021 12:00 PM REBAR WORKER Height 149.9 cm (4' 11) 05/21/2020 3:15 PM REBAR WORKER Body Mass Index 29.03 05/21/2020 3:15 PM REBAR WORKER Plan of Treatment Not on file Advance Directives * Full Resuscitation (Latest Code Status on File) Date Activated Date Inactivated Comments 05/21/2020 5:47 PM 07/19/2020 2:41 PM
--- OUTSIDE RECORDS SUMMARY | 2024-12-04 05:40 | XMS_ITS | Encounter Summary ---
Author Organization [facility] Address [address] [place] [address] Phone Care Team Providers Care Commercial Sales Manager Name Role Phone Reva Song NP Primary Care Provider [phone] Miguel Angel Grimaldo MD Unavailable [phone] Encounter Details Date Type Department Care Team (Late st Contact Info) Description 11/27/2024 Documentation [facility] Surgery [address] [place] [address] Marichuy Montanez Social History Tobacco Use Types Packs/Day Years Used Date Smoking Tobacco: Never Smokeless Tobacco: Never AUDIT-C Answer Date Recorded Q1: How often do you have a drink containing alc ohol? Monthly or less 11/21/2024 Q2: How many drinks containi ng alcohol do you have on a typical day when you are drinking? 1 or 2 11/21/2024 Q3: How often do you have si x or more drinks on one occasion? Never 11/21/2024 Hunger Vital Sign Answer Date Recorded Within [...] on file Sexual Orientation Not on file documented as of this encounter Progress Notes * Marichuy Montanez - 11/27/2024 12:00 PM CDT Message sent to Leyla at [facility] for supplies Supply form signed and faxed to [facility] for pt supplies on 12/03/24 documented in this encounter Plan of Treatment Not on file documented as of this encounter Visit Diagnoses Not on filedocumented in this encounter Care Teams Commercial Sales Manager Relationship Specialty Start Date End Date Reva Song NP [address] [place] [address] PCP - General Family Practice 01/06/24 Miguel Angel Grimaldo MD [phone] [place] [address] Surgeon Colon and Rectal Surgery 11/21/24 documented as of this encounter
--- OUTSIDE RECORDS SUMMARY | 2024-12-04 05:40 | XMS_ITS | Encounter Summary ---
Author Organization [facility] Address [address] [place] [address] Phone Care Team Providers Care Aircraft Electrical Systems Specialist Name Role Phone Reva Song NP Primary Care Provider [phone] Miguel Angel Grimaldo MD Unavailable [phone] Encounter Details Date Type Department Care Team (Late st Contact Info) Description 12/03/2024 Results Follow-Up [place] [facility] ([facility]) - [facility] Urology [address] [facility] 11th [place] [address] [place] [address] Tish Berger NP [address] [facility] [place] [address] Urine culture Urine, in and out catheter Social History Tobacco Use Types Packs/Day Years [...] on file documented as of this encounter Miscellaneous Notes * Telephone Encounter - Tish Berger NP - 12/03/2024 3:44 PM CDT Phoned patient with results of contaminated urine culture. Offered to place another urine culture order to local [facility]. Patient, requested a redraw labs sent today. We will reach out with results. Patient verbalized understanding and is agreeable to plan. documented in this encounter Plan of Treatment Not on file documented as of this encounter Visit Diagnoses Not on filedocumented in this encounter Care Teams Aircraft Electrical Systems Specialist Relationship Specialty Start Date End Date Reva Song NP [address] [place] [address] PCP - General Family Practice 01/06/24 Miguel Angel Grimaldo MD [phone] [place] [address] Surgeon Colon and Rectal Surgery 11/21/24 documented as of this encounter
--- OUTSIDE RECORDS SUMMARY | 2024-12-04 05:40 | XMS_ITS | Clinical Summary ---
Author Organization [facility] Address [address] [facility] [place] [address] Care Team Providers Care Safety Aide Name Role Phone Reva Song NP Primary Care Provider [phone] Miguel Angel Grimaldo MD Unavailable [phone] Allergies No known active allergies Medications mirtazapine [...] total) into the rectum daily 5 Active sulfamethoxazol e-trimethoprim (BACTRIM DS) 800-160 mg per tabletIndicatio ns:Urinary tract infection without hematuria, site unspecified Take 1 tablet by mouth 2 (two) times a day for 10 days 20 tablet 5 12/10/19 25 Active cephalexin (KEFLEX) 500 mg capsuleIndicati ons:Urinary tract infection without hematuria, site unspecified Take 1 capsule (500 mg total) by mouth 2 (two) times a day for 10 days 20 capsule 5 11/19/19 25 Active Problems Problem Noted Date Diagnosed Date [...] (04/26/2024): Added automatically from request for surgery [id number] Pneumonia due to methicillin resistant Staphylococcus aureus (MRSA) 02/26/2020 Overview (04/26/2024): Added automatically from request for surgery [id number] Splenic laceration, initial encounter 02/26/2020 Spondylolisthesis of cervical region 02/26/2020 Overview (04/26/2024): Last Assessment & Plan: Condition: stable Source of diagnosis: Diagnosis confirmed from PCP record and currently active Follow up in: Follow up with PCP/specialist as scheduled Traumatic epidural hematoma 02/26/2020 Overview (04/26/2024): Of spine Traumatic hemoperitoneum 02/26/2020 Traumatic pneumothorax 02/26/2020 Encounters Date Type Department Care Team Description 12/03/2024 [facility] - [facility] Urology [address] [place] [address] 11th [place] [address] Tish Berger, RECEPTIONIST SECRETARY Urine culture Urine, in and out catheter 12/03/2024 Orders Only [facility] ([facility]) - [facility] Urology [address] [place] [address] 11th [place] [address] Tish Berger, RECEPTIONIST SECRETARY Dysuria (Primary Dx); Chills 11/29/2024 3:53 PM CDT - 11/29/2024 11:59 PM CDT Hospital Encounter [facility] [address] [place] [address] Neurogenic bladder Discharge Disposition: Discharge to home or self care 11/29/2024 1:40 PM CDT Office Visit [facility]) - [facility] Urology [address] [place], [place] [address]th [place] [address] Tiffanie Cullen PA Neurogenic bladder (Primary Dx); Urinary tract infection without hematuria, site unspecified; Retention of urine, unspecified; Paraplegia, unspecified ([facility]) 11/27/2024 Documentation [facility] Surgery [address] [place] [address] Marichuy Montanez 11/21/2024 9:00 AM CDT Office Visit [facility] Surgery [address] [place] [address] Medical Office Building [address] [place] [address] Miguel Angel Grimaldo MD Wound of sacral region, subsequent encounter 11/12/2024 Results Follow-Up [facility]) - [facility] Urology [address] [place] [address] 11th [place] [address] Tiffanie Cullen PA Urine culture Urine, bladder 11/08/2024 1:05 PM CDT - 11/08/2024 11:59 PM CDT Hospital Encounter [facility] [address] [place] [address] Urinary tract infection without hematuria, site unspecified; Retention of urine, unspecified Discharge Disposition: Discharge to home or self care 11/08/2024 10:00 AM CDT Office Visit [facility]) [facility] Urology [address] [facility] 11th [place] [address] [place] [address] Tiffanie Cullen PA Neurogenic bladder (Primary Dx); Retention of urine, unspecified; Urinary tract infection without hematuria, site unspecified; Paraplegia, unspecified (HCC) 10/19/2024 10:30 AM CDT Office Visit [facility] Surgery [address] [facility] 6th [place] [address] [place] [address] Abram Mckeon MD Wound of sacral region, subsequent encounter (Primary Dx); Skin ulcer of sacrum, unspecified ulcer stage (HCC) from Last 3 Months Surgical History Surgery Date Site/Laterality Comments SPLENECTOMY 05/16/2019 - 05/15/2020 Medical History Medical History Date Comments Spinal cord injury at C1-C4 level ([facility]) C4-C5 paralysis Sacral wound Family History Medical History Relation Name Comments No Known Problems Father No Known Problems Mother Relation Name Status Comments Father Mother Social History Tobacco Use Types Packs/Day Years [...] Sign Reading Time Taken Comments Blood Pressure 101/71 11/21/2024 8:47 AM CDT Pulse 78 11/21/2024 8:47 AM CDT Temperature 37.2 C (98.9 F) 11/08/2024 10:45 AM CDT Respiratory Rate 18 11/08/2024 10:45 AM CDT Oxygen Saturation 96% 11/21/2024 8:47 AM CDT Inhaled Oxygen Concentration - - Weight 45.4 kg (100 lb) 11/21/2024 8:47 AM CDT Height 149.9 cm (4' 11) 11/21/2024 8:47 AM CDT Body Mass Index 20.2 11/21/2024 8:47 AM CDT Plan of Treatment Health Maintenance Due [...] - PCV) 03/10/2021 03/10/2020 Influenza Vaccine (#1) 2025 02/14/2020 DTaP/Tdap/Td Vaccine (4 - Td or Tdap) 07/07/2034 07/07/2024, 02/26/2020, 04/13/2019 HPV Vaccines Aged Out No longer eligi ble based on patient's age to complete this topic Procedures Procedure Name Priority Date/Time Associated Diagnosis Comments URINE CULTURE Routine 11/29/2024 3:53 PM CDT Neurogenic bladder MEASURE POST VOID RESIDUAL Routine 11/29/2024 3:51 PM CDT Neurogenic bladder POCT URINALYSIS DIPSTICK Routine 11/29/2024 3:04 PM CDT Neurogenic bladder URINE CULTURE Routine 11/08/2024 11:55 AM CDT Urinary tract infection without hematuria, site unspecified Retention of urine, unspecified POCT URINALYSIS DIPSTICK Routine 11/08/2024 10:55 AM CDT Urinary tract infection without hematuria, site unspecified MEASURE POST VOID RESIDUAL Routine 11/08/2024 10:46 AM CDT Urinary tract infection without hematuria, site unspecified from Last 3 Months Results * (ABNORMAL) Urine culture Urine, in and out catheter (11/29/2024 3:53 PM CDT) Report Final Report: Growth indicates contamination with enteric lizabeth.[1] Please submit a new specimen with special attention given to the collection process and to prompt transport to the laboratory. (*) Proteus mirabilis reported previously has been removed from the report. (1) Growth indicates contamination with enteric lizabeth. was initially reported as Escherichia coli. (.) Organism GROWTH INDICATES CONTAMINATION WITH ENTERIC LIZABETH. [facility] Urine, in and out catheter 11/29/2024 3:53 PM CDT 11/29/2024 5:59 PM CDT Narrative [facility] - 12/03/2024 4:31 PM CDT Testing performed by [facility] ([phone]) Tiffanie DE LAB MICROBIOLOGY - [facility] ORDERABLES Final Result [facility] Department [place] [address] * Measure post void residual (11/29/2024 3:51 PM CDT) Narrative Barbie Ladd RN - 11/29/2024 3:51 PM CDT Measurement of post-voiding residual urine and/or bladder capacity by ultrasound, non-imaging. PVR = 0 ml Tiffanie DE NURSING ASSESSMENTS F inal Result * (ABNORMAL) POCT urinalysis dipstick (11/29/2024 3:04 PM CDT) Color, Urine, POC Yellow Clarity, ur, POC Clear Clear Glucose, ur, POC Negative Negative Ketones, ur, POC Trace(A) Negative Blood, ur, POC Trace(A) Negative pH, ur, POC 7.0 5.0 - 8.0 Protein, ur, POC Trace(A) Negative Nitrite, ur, POC Positive(A) Negative Leukocytes, ur, POC Trace(A) Negative Lot Number 0 Urine 11/29/2024 3:04 PM CDT Tiffanie DE POINT OF CARE TEST OR DERABLES Final Result * (ABNORMAL) Urine culture Urine, bladder (11/08/2024 11:55 AM CDT) Report Final Report: Growth indicates contamination with enteric lizabeth. Please submit a new specimen with special attention given to the collection process and to prompt transport to the laboratory. (.) Organism GROWTH INDICATES CONTAMINATION WITH ENTERIC LIZABETH. [facility] Urine, bladder 11/08/2024 11 :55 AM CDT 11/08/2024 2:54 PM CDT Narrative [facility] - 11/09/2024 4:48 PM CDT Testing performed by [facility] ([phone]) Tiffanie DE LAB MICROBIOLOGY - [facility] ORDERABLES Final Result [facility] Department [place] [address] * (ABNORMAL) POCT urinalysis dipstick (11/08/2024 10:55 AM CDT) Color, Urine, POC Dark Denia Clarity, ur, POC Turbid(A) Clear Glucose, ur, POC Negative Negative Ketones, ur, POC Negative Negative Blood, ur, POC 3+(A) Negative pH, ur, POC 9.0(A) 5.0 - 8.0 Protein, ur, POC 1+(A) Negative Nitrite, ur, POC Positive(A) Negative Leukocytes, ur, POC 3+(A) Negative Lot Number 0 Urine 11/08/2024 10:5 5 AM CDT Tiffanie DE POINT OF CARE TEST OR DERABLES Edited Result - Final * Measure post void residual (11/08/2024 10:46 AM CDT) Narrative Barbie Ladd RN - 11/08/2024 10:46 AM CDT Measurement of post voiding residual urine and/or bladder capacity by ultrasound, non-imaging PVR = 86 ml Shreya Valente CMA Tiffanie DE NURSING ASSESSMENTS E dited Result - Final from Last 3 Months Insurance [facility] DUAL IN [facility] DUAL [place] Care Teams Safety Aide Relationship Specialty Start Date End Date Reva Song NP [address] [address] PCP - General Family Practice 01/06/24 Miguel Angel Grimaldo MD [phone] [place] [address] Surgeon Colon and Rectal Surgery 11/21/24
--- OUTSIDE RECORDS SUMMARY | 2024-12-04 05:40 | XMS_ITS | Encounter Summary ---
Author Organization [facility] Address [address] [facility] [address] [place] [address] Phone Care Team Providers Care Incident Commander Name Role Phone Reva Song NP Primary Care Provider [phone] Miguel Angel Grimaldo MD Unavailable [phone] Encounter Details Date Type Department Care Team (Late st Contact Info) Description 11/12/2024 Results Follow-Up [facility] ([facility]) - [facility] Urology [address] [facility] Advanced Medicine 11th [place] [address] [place] [address] Tiffanie Cullen PA [address] [facility] [place], [place] [id number] Urine culture Urine, bladder Social History Tobacco Use Types Packs/Day Years [...] on file documented as of this encounter Plan of Treatment Not on file documented as of this encounter Visit Diagnoses Not on filedocumented in this encounter Care Teams Incident Commander Relationship Specialty Start Date End Date Reva Song NP [address] [facility] [place] [address] PCP - General Family Practice 01/06/24 Miguel Angel Grimaldo MD [phone] [place] [address] Surgeon Colon and Rectal Surgery 11/21/24 documented as of this encounter
--- OUTSIDE RECORDS SUMMARY | 2024-12-04 05:40 | XMS_ITS | Encounter Summary ---
Author Organization [facility] Address [address] [place] [address] Phone Care Team Providers Care Benefits Processor Name Role Phone Reva Song NP Primary Care Provider [phone] Miguel Angel Grimaldo MD Unavailable [phone] Encounter Details Date Type Department Care Team (Late st Contact Info) Description 12/03/2024 Orders Only [facility] ([facility]) - [facility] Urology [address] [facility] Advanced Medicine 11th [place] [address] [place] [address] Tish Berger NP [address] [facility] [place] [address] Dysuria (Primary Dx); Chills Social History Tobacco Use Types Packs/Day Years [...] as of this encounter Plan of Treatment Scheduled Orders Name Type Priority Associated Diagnoses Orde r Schedule Urine culture Urine, in and out catheter Microbiology Routine Dysuria Chills Expected: 12/06/2024, Expires: 12/03/2025 documented as of this encounter Visit Diagnoses Diagnosis Dysuria- Primary Chills Chills (without fever) documented in this encounter Care Teams Benefits Processor Relationship Specialty Start Date End Date Reva Song NP [address] [place] [address] PCP - General Family Practice 01/06/24 Miguel Angel Grimaldo MD [phone] [place] [address] Surgeon Colon and Rectal Surgery 11/21/24 documented as of this encounter
--- OUTSIDE RECORDS SUMMARY | 2024-12-04 05:40 | XMS_ITS | Referral Summary ---
Author Organization [facility] Address [address] [place] [address] Care Team Providers Care Medical Unit Secretary Name Role Phone Reva Song NP Primary Care Provider [phone] Miguel Angel Grimaldo MD Unavailable [phone] Encounters Date Type Department Care Team Description 12/03/2024 Results Follow-Up [facility]) - [facility] Urology [address] [place] [address] 11th [place] [address] Tish Berger, ELIEZER Urine culture Urine, in and out catheter 12/03/2024 Orders Only [facility]) [facility] Urology [address] [place] [address] 11th [place] [address] Tish Berger, ELIEZER Dysuria (Primary Dx); Chills 11/29/2024 3:53 PM CDT - 11/29/2024 11:59 PM CDT Hospital Encounter [address] [address] Neurogenic bladder Discharge Disposition: Discharge to home or self care 11/29/2024 1:40 PM CDT Office Visit [facility]) - [facility] Urology [address] [place] [address] 11th [place] [address] [place] [address] Tiffanie Cullen PA Neurogenic bladder (Primary Dx); Urinary tract infection without hematuria, site unspecified; Retention of urine, unspecified; Paraplegia, unspecified (HCC) 11/27/2024 Documentation [facility] Surgery [address] [place] [address] Marichuy Monatnez 11/21/2024 9:00 AM CDT Office Visit [facility] Surgery [address] [place] [address] Medical Office Building [address] [place] [address] Miguel Angel Grimaldo MD Wound of sacral region, subsequent encounter 11/12/2024 Results Follow-Up [facility] ([facility]) [facility] Urology [address] [place] [address] [address]th [place] [address] [place] [address] Tiffanie Cullen PA Urine culture Urine, bladder 11/08/2024 1:05 PM CDT - 11/08/2024 11:59 PM CDT Hospital Encounter [address] [address] Urinary tract infection without hematuria, site unspecified; Retention of urine, unspecified Discharge Disposition: Discharge to home or self care 11/08/2024 10:00 AM CDT Office Visit [facility]) [facility] Urology [address] [place] [address] 11th [place] [address] Tiffanie Cullen PA Neurogenic bladder (Primary Dx); Retention of urine, unspecified; Urinary tract infection without hematuria, site unspecified; Paraplegia, unspecified (HCC) 10/19/2024 10:30 AM CDT Office Visit [facility] Surgery [address] [place] [address] 6th [place] [address] [place] [address] Abram Mckeon MD Wound of sacral region, subsequent encounter (Primary Dx); Skin ulcer of sacrum, unspecified ulcer stage (HCC) from Last 3 Months Allergies No known [...] (04/26/2024): Added automatically from request for surgery [id number] Pneumonia due to methicillin resistant Staphylococcus aureus (MRSA) 02/26/2020 Overview (04/26/2024): Added automatically from request for surgery [id number] Splenic laceration, initial encounter 02/26/2020 Spondylolisthesis of [...] 11/21/2024 8:47 AM CDT Plan of Treatment Not on file [...] Organism GROWTH INDICATES CONTAMINATION WITH ENTERIC LIZABETH. [facility] Urine, in and out catheter 11/29/2024 3:53 PM CDT 11/29/2024 5:59 PM CDT Narrative [facility] - 12/03/2024 4:31 PM CDT Testing performed by [facility]biology Laboratory ([phone]) Tiffanie DE LAB MICROBIOLOGY - GE NERAL ORDERABLES Final Result [facility] [place] [address] * Measure post void residual (11/29/2024 3:51 [...] Organism GROWTH INDICATES CONTAMINATION WITH ENTERIC LIZABETH. [facility] Urine, bladder 11/08/2024 11 :55 AM CDT 11/08/2024 2:54 PM CDT Narrative [facility] - 11/09/2024 4:48 PM CDT Testing performed by [facility] ([phone]) Tiffanie DE LAB MICROBIOLOGY - GE NERAL ORDERABLES Final Result [facility] [place] [address] * (ABNORMAL) POCT urinalysis dipstick (11/08/2024 10:55 [...] - Final from Last 3 Months Insurance [facility] [place] [facility] [place] Care Teams Medical Unit Secretary Relationship Specialty Start Date End Date Reva Song NP [facility] [place] [address] PCP - General Family Practice 01/06/24 Miguel Angel Grimaldo MD [phone] [place] [address] Surgeon Colon and Rectal Surgery 11/21/24
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
[2024-12-04 07:07] VITALS: BP 111/67; PULSE 109; RESP 17; O2SAT 99
[2024-12-04 07:21] VITALS: TEMP 36.9
[2024-12-04 07:22] LABS: BEDSIDEPREGUCG Negative (Negative)
--- OUTSIDE RECORDS SUMMARY | 2024-12-04 07:24 | XMS_ITS | Clinical Summary ---
Author Organization [facility] Address [address] [place] [address] Care Team Providers Care Life Agent Name Role Phone Reva Song NP Primary Care Provider [phone] Miguel Angel Grimaldo MD Unavailable [phone] Allergies No known active allergies Medications mirtazapine [...] (04/26/2024): Added automatically from request for surgery [id number] Pneumonia due to methicillin resistant Staphylococcus aureus (MRSA) 02/26/2020 Overview (04/26/2024): Added automatically from request for surgery [id number] Splenic laceration, initial encounter 02/26/2020 Spondylolisthesis of [...] 12/03/2024 Results [facility] - [facility] Urology [address] [place] [address] 11th [place] [address] Tish Berger, TUBE STATION ATTENDANT Urine culture Urine, in and out catheter 12/03/2024 Orders Only [facility] ([facility]) - [facility] Urology [address] [place] [address] 11th [place] [phone] Tish Berger, TUBE STATION ATTENDANT Dysuria (Primary Dx); Chills 11/29/2024 3:53 PM CDT - 11/29/2024 11:59 PM CDT Hospital Encounter [facility] [address] [place] [address] Neurogenic bladder Discharge Disposition: Discharge to home or self care 11/29/2024 1:40 PM CDT Office Visit [facility]) - [facility] Urology [address] [place], [place] [address] [place] [address] Tiffaine Cullen PA Neurogenic bladder (Primary Dx); Urinary tract infection without hematuria, site unspecified; Retention of urine, unspecified; Paraplegia, unspecified ([facility]) 11/27/2024 Documentation [facility] Surgery [address] [place] [address] Marichuy Montanez 11/21/2024 9:00 AM CDT Office Visit [facility] Surgery [address] [place] [address] Medical Office Building [address] [place] [address] Miguel Angel Grimaldo MD Wound of sacral region, subsequent encounter 11/12/2024 Results Follow-Up [facility]) - [facility] Urology [address] [place] [address] 11th [place] [phone] Tiffanie Cullen PA Urine culture Urine, bladder 11/08/2024 1:05 PM CDT - 11/08/2024 11:59 PM CDT Hospital Encounter [facility] [address] [place] [address] Urinary tract infection without hematuria, site unspecified; Retention of urine, unspecified Discharge Disposition: Discharge to home or self care 11/08/2024 10:00 AM CDT Office Visit [facility]) [facility] Urology [address] 11th [place] [address] Tiffanie Cullen PA Neurogenic bladder (Primary Dx); Retention of urine, unspecified; Urinary tract infection without hematuria, site unspecified; Paraplegia, unspecified (HCC) 10/19/2024 10:30 AM CDT Office Visit [facility] Surgery [address] 6th [place] [address] Abram Mckeon MD Wound of sacral region, subsequent encounter (Primary Dx); Skin ulcer of sacrum, unspecified ulcer stage (HCC) from Last 3 Months Surgical History Surgery Date Site/Laterality Comments SPLENECTOMY 05/16/2019 - 05/15/2020 Medical History Medical History Date Comments Spinal cord injury at C1-C4 level ([facility]) C4-C5 paralysis Sacral wound Family History Medical [...] Organism GROWTH INDICATES CONTAMINATION WITH ENTERIC LIZABETH. [facility] Urine, in and out catheter 11/29/2024 3:53 PM CDT 11/29/2024 5:59 PM CDT Narrative [facility] - 12/03/2024 4:31 PM CDT Testing performed by [facility] Microbiology Laboratory ([phone]) Tiffanie DE [facility] MICROBIOLOGY - [facility] ORDERABLES Final Result [facility] Department [place] [address] * Measure post void residual (11/29/2024 3:51 [...] Organism GROWTH INDICATES CONTAMINATION WITH ENTERIC LIZABETH. [facility] Urine, bladder 11/08/2024 11 :55 AM CDT 11/08/2024 2:54 PM CDT Narrative [facility] - 11/09/2024 4:48 PM CDT Testing performed by [facility] ([phone]) Tiffanie [facility] MICROBIOLOGY - [facility] ORDERABLES Final Result [facility] Department [place] [address] * (ABNORMAL) POCT urinalysis dipstick (11/08/2024 10:55 [...] - Final from Last 3 Months Insurance [facility] DUAL MA [facility] DUAL [place] Care Teams Life Agent Relationship Specialty Start Date End Date Reva Song NP [address] [place] [place] [address] PCP - General Family Practice 01/06/24 Miguel Angel Grimaldo MD [phone] [place] [address] Surgeon Colon and Rectal Surgery 11/21/24
--- OUTSIDE RECORDS SUMMARY | 2024-12-04 07:24 | XMS_ITS | Encounter Summary ---
Author Organization [facility] Address [address] [place] [address] Phone Care Team Providers Care Material Disposition Inspector Name Role Phone Reva Song NP Primary Care Provider [phone] Miguel Angel Grimaldo MD Unavailable [phone] Encounter Details Date Type Department Care Team (Late st Contact Info) Description 12/03/2024 Results [facility]Up [facility]) - [facility] Urology [address] [facility] Advanced Medicine 11th [place] [address] [place] [address] Tish Berger NP [address] [facility] [place] [place] [address] Urine culture Urine, in and out catheter [...] on filedocumented in this encounter Care Teams Material Disposition Inspector Relationship Specialty Start Date End Date Reva Song NP [address] [place] [address] PCP - General Family Practice 01/06/24 Miguel Angel Grimaldo MD [phone] [place] [address] Surgeon Colon and Rectal Surgery 11/21/24 documented as of this encounter
--- OUTSIDE RECORDS SUMMARY | 2024-12-04 07:24 | XMS_ITS | Encounter Summary ---
Author Organization [facility] Address [address] [facility] [address] [place] [address] Phone Care Team Providers Care Geometry Professor Name Role Phone Reva Song NP Primary Care Provider [phone] Miguel Angel Grimaldo MD Unavailable [phone] Encounter Details Date Type Department Care Team (Late st Contact Info) Description 11/12/2024 Results Follow-Up [facility] ([facility]) - [facility] Urology [address] [facility] Advanced Medicine 11th [place] [address] [place] [address] Tiffanie Cullen PA [address] [facility] [place], [place] [id number] Urine culture Urine, bladder Social History Tobacco [...] on filedocumented in this encounter Care Teams Geometry Professor Relationship Specialty Start Date End Date Reva Song NP [address] [place] [address] PCP - General Family Practice 01/06/24 Miguel Angel Grimaldo MD [phone] [place] [address] Surgeon Colon and Rectal Surgery 11/21/24 documented as of this encounter
--- OUTSIDE RECORDS SUMMARY | 2024-12-04 07:24 | XMS_ITS | Encounter Summary ---
Author Organization [facility] Address [address] [place] [address] Phone Care Team Providers Care Semiconductor Dies Loader Name Role Phone Reva Song NP Primary Care Provider [phone] Miguel Angel Grimaldo MD Unavailable [phone] Encounter Details Date Type Department Care Team (Late st Contact Info) Description 11/27/2024 Documentation [facility] Surgery [address] [place] [address] Marichuy Montanez Social History Tobacco Use Types [...] PM CDT Message sent to Leyla at [facility] for supplies Supply form signed and faxed to [facility] for pt supplies on 12/03/24 documented in this encounter Plan of Treatment Not on file documented as of this encounter Visit Diagnoses Not on filedocumented in this encounter Care Teams Semiconductor Dies Loader Relationship Specialty Start Date End Date Reva Song NP [address] [address] PCP - General Family Practice 01/06/24 Miguel Angel Grimaldo MD [phone] [place] [address] Surgeon Colon and Rectal Surgery 11/21/24 documented as of this encounter
--- OUTSIDE RECORDS SUMMARY | 2024-12-04 07:24 | XMS_ITS | Clinical Summary ---
Author Organization [facility] Address [address] [place] [address] Care Team Providers Care Computer Numerical Control Operator Name Role Phone Unavailable Primary Care [...] by mouth 2 (two) times a day. Enmt-wih-tjrvafn stool softener 0 1 Active gabapentin (NEURONTIN) [...] Comments Blood Pressure 142/100 07/19/2020 8:15 AM HOSPITAL DIRECTOR Pulse 72 07/19/2020 8:15 AM HOSPITAL DIRECTOR Temperature 36.7 C (98 F) 07/19/2020 8:15 AM HOSPITAL DIRECTOR Respiratory Rate 16 07/19/2020 8:15 AM HOSPITAL DIRECTOR Oxygen Saturation 97% 07/19/2020 8:15 AM HOSPITAL DIRECTOR Inhaled Oxygen Concentration - - Weight 65.2 kg (143 lb 11.8 oz) 021 12:00 PM HOSPITAL DIRECTOR Height 149.9 cm (4' 11) 05/21/2020 3:15 PM HOSPITAL DIRECTOR Body Mass Index 29.03 05/21/2020 3:15 PM HOSPITAL DIRECTOR Plan of Treatment Not on file Advance Directives * Full Resuscitation (Latest Code Status on File) Date Activated Date Inactivated Comments 05/21/2020 5:47 PM 07/19/2020 2:41 PM
--- OUTSIDE RECORDS SUMMARY | 2024-12-04 07:24 | XMS_ITS | Encounter Summary ---
Author Organization [facility] Address [address] [place] [address] Phone Care Team Providers Care Pressroom Worker Name Role Phone Reva Song NP Primary Care Provider [phone] Miguel Angel Grimaldo MD Unavailable [phone] Encounter Details Date Type Department Care Team (Late st Contact Info) Description 12/03/2024 Orders Only [facility]) - [facility] Urology [address] [facility] Advanced Medicine 11th [place] [address] [place] [address] Tish Berger NP [address] [facility] [place] [address] Dysuria (Primary Dx); Chills Social History Tobacco [...] fever) documented in this encounter Care Teams Pressroom Worker Relationship Specialty Start Date End Date Reva Song NP [address] [place] [address] PCP - General Family Practice 01/06/24 Miguel Angel Grimaldo MD [phone] [place] [address] Surgeon Colon and Rectal Surgery 11/21/24 documented as of this encounter
--- OUTSIDE RECORDS SUMMARY | 2024-12-04 07:24 | XMS_ITS | Referral Summary ---
Author Organization [facility] Address [address] [place] [address] Care Team Providers Care Planning Rn Name Role Phone Reva Song NP Primary Care Provider [phone] Miguel Angel Grimaldo MD Unavailable [phone] Encounters Date Type Department Care Team Description 12/03/2024 Results Follow-Up [facility] - [facility] [address] [place] [address] 11th [place] [address] Tish Berger, ELIEZER Urine culture Urine, in and out catheter 12/03/2024 Orders Only [facility]) [facility] [address] [place] [address] 11th [place] [address] Tish Berger, ELIEZER Dysuria (Primary Dx); Chills 11/29/2024 3:53 PM CDT - 11/29/2024 11:59 PM CDT Hospital Encounter [address] [address] Neurogenic bladder Discharge Disposition: Discharge to home or self care 11/29/2024 1:40 PM CDT Office Visit [facility]) - [facility] [address] [place] [address] 11th [place] [address] [place] [address] Tiffanie Cullen PA Neurogenic bladder (Primary Dx); Urinary tract infection without hematuria, site unspecified; Retention of urine, unspecified; Paraplegia, unspecified (HCC) 11/27/2024 Documentation [facility] [address] [place] [address] Marichuy Montanez 11/21/2024 9:00 AM CDT Office Visit [facility] [address] [place] [address] Medical Office Building [address] [place] [phone] Miguel Angel Grimaldo MD Wound of sacral region, subsequent encounter 11/12/2024 Results Follow-Up [facility] [address] [place] [address] 11th [place] [address] [place] [phone] Tiffanie Cullen PA Urine culture Urine, bladder 11/08/2024 1:05 PM CDT - 11/08/2024 11:59 PM CDT Hospital Encounter [address] [address] Urinary tract infection without hematuria, site unspecified; Retention of urine, unspecified Discharge Disposition: Discharge to home or self care 11/08/2024 10:00 AM CDT Office Visit [facility]) [facility] [address] [place] [address] 11th [place] [address] Tiffanie Cullen PA Neurogenic bladder (Primary Dx); Retention of urine, unspecified; Urinary tract infection without hematuria, site unspecified; Paraplegia, unspecified (HCC) 10/19/2024 10:30 AM CDT Office Visit [facility] [address] [place] [address] 6th [place] [address] [place] [address] Abram Mckeon MD Wound of sacral region, [...] (04/26/2024): Added automatically from request for surgery [id number] Pneumonia due to methicillin resistant Staphylococcus aureus (MRSA) 02/26/2020 Overview (04/26/2024): Added automatically from request for surgery [id number] Splenic laceration, initial encounter 02/26/2020 Spondylolisthesis of [...] Organism GROWTH INDICATES CONTAMINATION WITH ENTERIC LIZABETH. [facility] Urine, in and out catheter 11/29/2024 3:53 PM CDT 11/29/2024 5:59 PM CDT Narrative IVY ESTRADA - 12/03/2024 4:31 PM CDT Testing performed by [facility] ([phone]) Tiffanie DE LAB MICROBIOLOGY - GE NERAL ORDERABLES Final Result [facility] Department [place] [address] * Measure post void residual (11/29/2024 3:51 [...] GROWTH INDICATES CONTAMINATION WITH ENTERIC LIZABETH. [facility] Urine, bladder 11/08/2024 11 :55 AM CDT 11/08/2024 2:54 PM CDT Narrative IVY ESTRADA - 11/09/2024 4:48 PM CDT Testing performed by [facility] ([phone]) Tiffanie DE LAB MICROBIOLOGY - GE NERAL ORDERABLES Final Result [facility] [place] [address] * (ABNORMAL) POCT urinalysis dipstick (11/08/2024 10:55 [...] - Final from Last 3 Months Insurance [facility] [place] [facility] [place] Care Teams Planning Rn Relationship Specialty Start Date End Date Reva Song NP [facility] [place] [address] PCP - General Family Practice 01/06/24 Miguel Angel Grimaldo MD [phone] [place] [address] Surgeon Colon and Rectal Surgery 11/21/24
[2024-12-04 07:44] LABS: Add Urine Microscopic? YES; Appearance Urine Turbid (Clear); Glucose Urine UA Negative (Negative); Leukocyte Esterase Ur 3+ LEU/UL (Negative); Need Manual Microscopic Reviewed; Nitrate Urine Negative (Negative); Specific Grav Ur 1.027 (1.001-1.035)
[2024-12-04 07:51] VITALS: BP 101/70; PULSE 94; RESP 13; O2SAT 97
[2024-12-04] MEDS: ONDANSETRON INJ 4 MG/2 ML VIAL IV PUSH (07:52)
[2024-12-04] MEDS: MORPHINE SULFATE (*CRX) 2 MG/ML INJ IV PUSH (07:52)
[2024-12-04 07:53] LABS: Hematocrit 36.8 % (37.0-47.0); Hemoglobin 11.8 g/dL (12.0-15.0); Immature Granulocyte Percent A 0.1 % (0-0.5); Lymphocytes Absolute Auto 2.10 K/mm3 (0.9-3.2); Mean Corpuscular HGB Conc 32.1 g/dl (32-36); Mean Corpuscular Hemoglobin 27.8 pg (26-34); Mean Corpuscular Volume 86.8 fl (80-100); Nucleated Red Blood Cells Absolute Auto 0.000 K/mm3 (0.0-0.012); Nucleated Red Blood Cells Perc 0.0 % (0.0-0.2); Platelet Count Result 495 k/mm3 (150-375); Red Blood Count 4.24 M/mm3 (4.2-5.4); White Blood Count 8.8 K/mm3 (4.5-10.0)
[2024-12-04 08:27] LABS: Alanine Aminotransferase 12 U/L (6-35); Albumin Level 4.1 g/dL (3.5-5.1); Alkaline Phosphatase 69 U/L (38-126); Anion Gap 12 mmol/L (4-12); Aspartate Amino Transferase 23 U/L (14-36); Bilirubin,Total 0.3 mg/dL (0.2-1.3); Blood Urea Nitrogen 8 mg/dL (7-17); Calcium 9.6 mg/dL (8.4-10.2); Carbon Dioxide 16 mmol/L (22-30); Chloride 110 mmol/L (98-107); Estimated Glomerular Filt Rate > 60; Glucose 94 mg/dL (65-110); Potassium 3.8 mmol/L (3.4-5.0); Sodium 138 mmol/L (137-145); Total Protein 7.5 g/dL (6.3-8.2)
[2024-12-04] MEDS: PHENAZOPYRIDINE HCL 100 MG TABLET PO (08:49)
[2024-12-04] MEDS: cefTRIAXone 1 GM in SODIUM CHLORIDE 0.9% IV 50 ML 100 ML IVPB (09:52)
--- NOTE | 2024-12-04 11:01 | PC.NURSE ---
Mac catheter removed intact per REN from [facility]
[2024-12-04 11:02] VITALS: BP 97/70; PULSE 97; RESP 13; TEMP 36.8; O2SAT 99
== END 2024-12-04 11:03 | disposition home or self-care (01) ==
PROVIDERS: Student in an Organized Health Care Education/Training Program; Emergency Provider Student in an Organized Health Care Education/Training Program; PCP Family Medicine Adolescent Medicine
DX: N30.90 Cystitis, unspecified without hematuria (principal); N89.8 Other specified noninflammatory disorders of vagina; L89.159 Pressure ulcer of sacral region, unspecified stage; D75.839 Thrombocytosis, unspecified; D64.9 Anemia, unspecified; G82.20 Paraplegia, unspecified; Z90.81 Acquired absence of spleen; Z77.22 Contact with and (suspected) exposure to environmental tobacco smoke (acute) (chronic)
CPT/HCPCS: 36415; 51702; 74177; 80053; 81001; 81025; 85025; 87086; 96365; 96375; 99284; A9270; J0696; J2270; J2405; Q9967